=== PATIENT | male | born 1950 | race Caucasian/White ===

== ENCOUNTER 2019-10-31 08:54 | Outpatient (CLI) | payer MEDICARE, SELFPAY ==
--- NOTE | 2019-10-31 09:13 | IR_ITS ---
WS: [id number] THORACIC AND LUMBAR MYELOGRAMs HISTORY: S/P INSERTION OF SPINAL STIMULATOR, DISC DISORDER LUMBAR REGION COMPARISON: 01/06/2019 FLUOROSCOPY TIME: 1.1 minutes. Procedure, risks and complications were explained to the patient. Risks including bleeding, infection , headaches, allergic reaction and seizures. Consent has been obtained. With the patient in prone position the skin over the lumbar region is cleansed with ChloraPrep and an esthetized with lidocaine. 22-gauge spinal needle is inserted into the thecal sac at the appropriate level determined by fluoroscopy. Omnipaque 300; 12 ml is injected slowly under fluoroscopy with no co mplications. Needle bevel is perpendicular to the longitudinal fibers of the dura. Stylet is reinsert ed prior to removal of the needle. Patient tolerated the procedure well. Patient will proceed to CT f or further evaluation. Dorsal column stimulator electrode over the RIGHT lateral paravertebral region. Uncomplicated injecti on of contrast. The electrodes for the stimulator project over the mid thoracic region at T7-8. Multilevel osteophytosis and disc space narrowing throughout the mid to lower thoracic spine. There i s mild straightening and very slight RIGHT convex curvature. Very mild anterior wedging of T12 is sta ble. Posterior lumbar alignment is normal. With flexion and extension there is no instability. IR/IR myelogram spine thorac/lumb IMPRESSION: 1. Uncomplicated thoracic and lumbar myelograms. 2. No lumbar spine instability. 3. Stable mild anterior wedging of T12. 4. Dorsal column stimulator generator in the RIGHT paraspinal region with elec trodes posteriorly at the T7-8 level. 5. Mild RIGHT convex curvature mid thoracic spine with moderate mid to lower t horacic spondylosis.
--- NOTE | 2019-10-31 09:15 | CT_ITS ---
WS: [id number] CT MYELOGRAM LUMBAR SPINE HISTORY: S/P INSERTION OF SPINAL STIMULATOR, DISC DISORDER LUMBAR REG TECHNIQUE: Contiguous 2.5 mm axial imaging performed from T12 through the mid sacral level. Bone and soft tissue windows reviewed. Sagittal and coronal reformats are submitted and reviewed. DLP: 2080.[address] scans at [facility] use at least one of these dose optimization techniques: automat ed exposure control; mA and/or kV adjustment per patient size (includes targeted exams where dose is matched to clinical indication); or iterative reconstruction. COMPARISON: 01/06/2019 Good injection of the thecal sac with contrast. Posterior lumbar alignment is normal. Mild disc space narrowing and desiccation at L5-S1. No fractures or pedicle defects. Conus tapers normally ends at t he mid L1 level. L1-L2: L2-L3: Very mild annular disc bulging and facet arthritis. No stenosis. L3-L4: Mild annular disc bulging and facet arthritis. L4-L5: Mild annular disc bulging and facet arthritis. Mild ligamentum flavum arthritis. No significan t stenosis. L5-S1: Hypertrophic osteophyte formation and annular disc bulging. RIGHT foraminal osteophyte with mi ld contact on the RIGHT S1 and L5 nerve roots. Contact on the nerve roots is due to combination of di sc bulging and disc osteophyte complex. Smaller osteophyte in the LEFT foramen with mild contact upon the L5 nerve root. Similar to the prior study of 01/06/2019. Mild degenerative changes in the SI joints. No erosions. Mild atherosclerosis aorta. CT/CT lumbar spine w con [id number] IMPRESSION: 1. No severe stenosis. 2. Disc and osteophyte disease contacting the RIGHT L5 and S1 nerve roots and mild contact on the LEFT L5 nerve root. Similar to the prior study of 01/06/2019 .
--- NOTE | 2019-10-31 09:15 | CT_ITS ---
WS: [id number] CT THORACIC MYELOGRAM HISTORY: S/P INSERTION OF SPINAL STIMULATOR, DISC DISORDER LUMBAR REGION TECHNIQUE: Contiguous 2.5 mm axial images are reviewed to thoracic spine. Images are reformatted in s agittal and coronal planes. All CT scans at [facility] use at least one of these dose opt imization techniques: automated exposure control; mA and/or kV adjustment per patient size (includes targeted exams where dose is matched to clinical indication); or iterative reconstruction. DLP: 1114.19 mGycm COMPARISON: 01/06/2019 Mild straightening of the normal thoracic kyphosis. Very mild anterior wedging of T12 and T10 is janie lar to the prior study. No retropulsion of the vertebral bodies. There is a dorsal column stimulator noted posterior to the thecal sac at T7-8. Majority of the contrast injected for the myelogram is lay ering posteriorly in the thecal sac. Significant artifact through the upper thoracic spine secondary to the shoulders. No significant sten osis is appreciated. Shallow RIGHT paracentral disc protrusion protrusion at T1-2. T8-9: Central disc protrusion with CSF still surrounding the cord. No significant stenosis within the thoracic spine. CT/CT thoracic spine w con [id number] IMPRESSION: 1. No significant central or foraminal stenosis in the thoracic spine. 2. Dorsal column stimulator electrodes at the T7-8 level with no interval jordan [employer].
[2019-10-31] MEDS: iohexol 300 mg/mL 50 mL Btl INTRATHECA (10:42)
== END 2019-10-31 08:55 | disposition home or self-care (01) ==
LOC: RADWPI 09:02
PROVIDERS: Family Provider Family Medicine; PCP Family Medicine; Visit Provider Specialist
DX: Z98.890 Other specified postprocedural states (principal); M51.17 Intervertebral disc disorders with radiculopathy, lumbosacral region; M51.37 Other intervertebral disc degeneration, lumbosacral region; M47.814 Spondylosis without myelopathy or radiculopathy, thoracic region
CPT/HCPCS: 62305; 72120; 72129; 72132; Q9967

== ENCOUNTER → 2019-11-27 11:53 | Outpatient (BNVA) | payer MEDICARE, SELFPAY | PROVIDERS: Family Provider Family Medicine; PCP Family Medicine; Visit Provider Nurse Practitioner Family | DX: B42.9 Sporotrichosis, unspecified (principal) | CPT/HCPCS: 85025; 87070; 87102; 87206 ==

== ENCOUNTER 2020-04-23 15:44 | Outpatient (CLI) | payer MEDICARE, SELFPAY ==
--- NOTE | 2020-04-23 16:18 | MR_ITS ---
WS: [id number] MRI THORACIC SPINE noncontrast HISTORY: FAILURE OF SPINAL CORD STIMULATOR, INITIAL ENCOUNTER COMPARISON: 10/31/2019 TECHNIQUE: Multiplanar sequences are performed in sagittal and axial planes. Spinal cord stimulator has been removed since the prior study. There is a soft tissue defect in the p osterior soft tissues at T7-8. Mild straightening of the normal kyphosis. Mild anterior wedging of T1 2 by 20% from an old compression fracture. There is also mild anterior wedging of T10 with the superi or endplate Schmorl's node. No acute marrow edema. Signal is in the thoracic cord is normal. There is no atrophy or enlargement. No syrinx identified. Conus tapers normally ends towards the L1 level. T1-2: Mild facet arthritis on the RIGHT. No stenosis. T2-3: Mild bilateral facet joint arthritis. T3-4: Mild bilateral facet joint arthritis. T4-5: Normal. T5-6: Normal. T6-7: Normal. T7-8: Mild facet joint arthritis. No stenosis. T8-9: Shallow central disc protrusion and annular fissure. No contact on the cord. Mild bilateral fa cet joint arthritis. Mild narrowing of the LEFT foramen. T9-10: Mild annular disc bulging and facet arthritis. Mild bilateral foraminal narrowing. T10-11: Facet joint arthritis with narrowing of the foramen. Moderate bilateral foraminal stenosis. No disc protrusion. T11-12: Mild annular disc bulging and moderate facet joint arthritis. Moderate bilateral foraminal n arrowing. Paravertebral soft tissues are negative. MR/MR thoracic spin wo con* [id number] IMPRESSION: 1. No high-grade central or foraminal stenosis. 2. Moderate bilateral foraminal stenosis at T10-11 and T11-12. 3. Central disc protrusion and annular fissure at T8-9 without cord contact. 4. No syrinx or cord compression.
--- NOTE | 2020-04-23 16:19 | MR_ITS ---
WS: [id number] MRI LUMBAR SPINE NONCONTRAST HISTORY: FAILURE OF SPINAL CORD STIMULATOR, INITIAL ENCOUNTER COMPARISON: 10/15/[address] lumbar spine 10/31/2019 TECHNIQUE: Sagittal and axial multisequence imaging is submitted. Mild straightening of the normal lumbar lordosis. Again noted is a chronic T12 compression fracture b y approximately 20%. Benign hemangioma in the anterior L5 vertebral body. No acute fractures. Posterior lumbar alignment is normal. Mild disc desiccation throughout, moderate narrowing at L5-S1. Conus terminates normally at L1-2 disc level. L1-L2: Normal. L2-L3: Small amount of fluid in the facet joints and mild annular disc bulging. No stenosis. L3-L4: Mild annular disc bulging and a small amount of fluid in the facet joints. No significant sten osis or protrusion. L4-L5: Mild annular disc bulging. There is a central disc protrusion and annular fissure. No contact on the nerve roots. Small amount of fluid in the facet joints and ligamentum flavum hypertrophy. Ther e is very mild narrowing of the foramen. L5-S1: Mild annular disc bulging and osteophytic ridging. Disc osteophyte in the subarticular recess. There is effacement of fat adjacent to the S1 nerve root on the RIGHT with mild contact on the L5 ne rve root. Small osteophyte contacting the undersurface of the LEFT L5 nerve root. MR/MR lumbar spine wo con* [id number] IMPRESSION: 1. Mild degenerative disc disease throughout the lumbar spine, most significan t at L5-S1. 2. Mild bilateral subarticular recess narrowing at L5-S1. Disc osteophyte with mild contact on the RIGHT L5 and S1 nerve roots without displacement. Minimal contact on the LEFT L5 nerve root due to osteophyte formation. 3. Shallow central disc protrusion and annular fissure at L4-5. 4. Minimal foraminal narrowing at L4-5.
== END 2020-04-23 15:45 | disposition home or self-care (01) ==
LOC: RADSHAW 15:49
PROVIDERS: PCP Family Medicine; Visit Provider Surgery
DX: T85.192A Other mechanical complication of implanted electronic neurostimulator of spinal cord electrode (lead), initial encounter (principal); X58.XXXA Exposure to other specified factors, initial encounter; M51.36 Other intervertebral disc degeneration, lumbar region; M25.78 Osteophyte, vertebrae; M51.26 Other intervertebral disc displacement, lumbar region; Q05.7 Lumbar spina bifida without hydrocephalus; M48.04 Spinal stenosis, thoracic region; M51.24 Other intervertebral disc displacement, thoracic region
CPT/HCPCS: 72146; 72148

== ENCOUNTER → 2020-05-07 09:00 | Outpatient (BNVA) | payer MEDICARE, SELFPAY | PROVIDERS: PCP Family Medicine; Visit Provider Nurse Practitioner Family | DX: I10 Essential (primary) hypertension (principal); E03.9 Hypothyroidism, unspecified; E78.5 Hyperlipidemia, unspecified; E11.9 Type 2 diabetes mellitus without complications | CPT/HCPCS: 80053; 80061; 83036; 84439; 84443; 85025 ==

== ENCOUNTER → 2020-07-09 08:31 | Outpatient (BNVA) | payer MEDICARE, SELFPAY | PROVIDERS: PCP Family Medicine; Referring Provider Surgery; Visit Provider Anesthesiology Pain Medicine | DX: M54.9 Dorsalgia, unspecified (principal); M47.816 Spondylosis without myelopathy or radiculopathy, lumbar region; M51.16 Intervertebral disc disorders with radiculopathy, lumbar region; M47.814 Spondylosis without myelopathy or radiculopathy, thoracic region; M51.9 Unspecified thoracic, thoracolumbar and lumbosacral intervertebral disc disorder; M62.830 Muscle spasm of back | CPT/HCPCS: 99205 ==

== ENCOUNTER → 2020-07-17 09:18 | Outpatient (BNVA) | payer MEDICARE, SELFPAY | PROVIDERS: PCP Family Medicine; Visit Provider Anesthesiology Pain Medicine | DX: M54.9 Dorsalgia, unspecified (principal); M47.816 Spondylosis without myelopathy or radiculopathy, lumbar region; M47.814 Spondylosis without myelopathy or radiculopathy, thoracic region; M51.9 Unspecified thoracic, thoracolumbar and lumbosacral intervertebral disc disorder; M62.830 Muscle spasm of back | CPT/HCPCS: 99213; 99214 ==

== ENCOUNTER → 2020-08-12 14:11 | Outpatient (BNVA) | payer MEDICARE, SELFPAY | PROVIDERS: PCP Family Medicine; Visit Provider Anesthesiology Pain Medicine | DX: M47.816 Spondylosis without myelopathy or radiculopathy, lumbar region (principal); M54.9 Dorsalgia, unspecified | CPT/HCPCS: 64493; 64494; 64495; J3490 ==

== ENCOUNTER → 2020-09-05 09:07 | Outpatient (BNVA) | payer MEDICARE, SELFPAY | PROVIDERS: PCP Family Medicine; Visit Provider Anesthesiology Pain Medicine | DX: M51.17 Intervertebral disc disorders with radiculopathy, lumbosacral region (principal); M79.18 Myalgia, other site; M54.9 Dorsalgia, unspecified; M47.816 Spondylosis without myelopathy or radiculopathy, lumbar region; M47.814 Spondylosis without myelopathy or radiculopathy, thoracic region; M51.9 Unspecified thoracic, thoracolumbar and lumbosacral intervertebral disc disorder | CPT/HCPCS: 20553; 99214; J1030; J3490 ==

== ENCOUNTER → 2020-09-10 12:47 | Outpatient (BNVA) | payer MEDICARE, SELFPAY | PROVIDERS: PCP Family Medicine; Visit Provider Anesthesiology Pain Medicine | DX: M47.816 Spondylosis without myelopathy or radiculopathy, lumbar region (principal); M54.9 Dorsalgia, unspecified; Z79.891 Long term (current) use of opiate analgesic | CPT/HCPCS: 64493; 64494; 64495; J3490 ==

== ENCOUNTER → 2020-09-25 10:29 | Outpatient (BNVA) | payer MEDICARE, SELFPAY | PROVIDERS: PCP Family Medicine; Visit Provider Anesthesiology Pain Medicine | DX: G89.29 Other chronic pain (principal); M51.17 Intervertebral disc disorders with radiculopathy, lumbosacral region; M54.9 Dorsalgia, unspecified; M47.816 Spondylosis without myelopathy or radiculopathy, lumbar region; M47.814 Spondylosis without myelopathy or radiculopathy, thoracic region; M51.9 Unspecified thoracic, thoracolumbar and lumbosacral intervertebral disc disorder; M62.830 Muscle spasm of back | CPT/HCPCS: 99214 ==

== ENCOUNTER → 2020-10-02 14:11 | Outpatient (BNVA) | payer MEDICARE, SELFPAY | PROVIDERS: PCP Family Medicine; Visit Provider Anesthesiology Pain Medicine | DX: M47.816 Spondylosis without myelopathy or radiculopathy, lumbar region (principal); M54.9 Dorsalgia, unspecified; Z79.891 Long term (current) use of opiate analgesic | CPT/HCPCS: 64635; 64636; J1030; J3490 ==

== ENCOUNTER 2020-10-16 10:01 | Outpatient (RCR) | payer MEDICARE, SELFPAY | END 2020-11-08 23:59 | disposition home or self-care (01) | LOC: SPT 10:01 | PROVIDERS: PCP Family Medicine; Referring Provider Anesthesiology Pain Medicine; Visit Provider Anesthesiology Pain Medicine | DX: M47.816 Spondylosis without myelopathy or radiculopathy, lumbar region (principal); Z01.812 Encounter for preprocedural laboratory examination; G89.29 Other chronic pain; M54.5 Low back pain | CPT/HCPCS: 64635; 64636; 97110; 97162 ==

== ENCOUNTER → 2020-10-29 11:01 | Outpatient (BNVA) | payer MEDICARE, SELFPAY | PROVIDERS: PCP Family Medicine; Visit Provider Anesthesiology Pain Medicine | DX: M51.17 Intervertebral disc disorders with radiculopathy, lumbosacral region (principal); M79.18 Myalgia, other site; M54.9 Dorsalgia, unspecified; M47.816 Spondylosis without myelopathy or radiculopathy, lumbar region; M47.814 Spondylosis without myelopathy or radiculopathy, thoracic region; M51.9 Unspecified thoracic, thoracolumbar and lumbosacral intervertebral disc disorder; Z79.891 Long term (current) use of opiate analgesic | CPT/HCPCS: 20553; 99214; J1030; J3490 ==

== ENCOUNTER 2020-11-09 06:00 | Outpatient (RCR) | payer MEDICARE, SELFPAY | END 2020-12-09 23:59 | disposition home or self-care (01) | LOC: SPT 06:00 | PROVIDERS: PCP Family Medicine; Referring Provider Anesthesiology Pain Medicine; Visit Provider Anesthesiology Pain Medicine | DX: M47.816 Spondylosis without myelopathy or radiculopathy, lumbar region (principal); Z01.812 Encounter for preprocedural laboratory examination; G89.29 Other chronic pain; M54.5 Low back pain | CPT/HCPCS: 97110 ==

== ENCOUNTER → 2021-01-20 11:14 | Outpatient (BNVA) | payer MEDICARE, SELFPAY | PROVIDERS: PCP Family Medicine; Visit Provider Nurse Practitioner Family | DX: E03.9 Hypothyroidism, unspecified (principal); E11.9 Type 2 diabetes mellitus without complications; I10 Essential (primary) hypertension | CPT/HCPCS: 80053; 80061; 83036; 84439; 84443 ==

== ENCOUNTER → 2021-01-21 10:44 | Outpatient (BNVA) | payer MEDICARE, SELFPAY | PROVIDERS: PCP Family Medicine; Visit Provider Anesthesiology Pain Medicine | DX: G89.29 Other chronic pain (principal); M51.17 Intervertebral disc disorders with radiculopathy, lumbosacral region; M79.18 Myalgia, other site; M47.816 Spondylosis without myelopathy or radiculopathy, lumbar region; M47.814 Spondylosis without myelopathy or radiculopathy, thoracic region; M51.9 Unspecified thoracic, thoracolumbar and lumbosacral intervertebral disc disorder; Z79.891 Long term (current) use of opiate analgesic | CPT/HCPCS: 20553; 99214; J1030; J3490 ==

== ENCOUNTER → 2021-04-24 13:09 | Outpatient (BNVA) | payer MEDICARE, SELFPAY | PROVIDERS: PCP Family Medicine; Visit Provider Anesthesiology Pain Medicine | DX: M79.18 Myalgia, other site (principal); M51.16 Intervertebral disc disorders with radiculopathy, lumbar region; M47.816 Spondylosis without myelopathy or radiculopathy, lumbar region; M51.9 Unspecified thoracic, thoracolumbar and lumbosacral intervertebral disc disorder; M47.814 Spondylosis without myelopathy or radiculopathy, thoracic region; Z79.891 Long term (current) use of opiate analgesic | CPT/HCPCS: 20553; 99214; J1030; J3490 ==

== ENCOUNTER → 2021-10-29 09:48 | Outpatient (BNVA) | payer MEDICARE, SELFPAY | PROVIDERS: PCP Family Medicine; Visit Provider Nurse Practitioner Family | DX: M54.9 Dorsalgia, unspecified (principal); G89.29 Other chronic pain; M62.830 Muscle spasm of back; E11.9 Type 2 diabetes mellitus without complications; E03.9 Hypothyroidism, unspecified | CPT/HCPCS: 80053; 80061; 82306; 83036; 84443 ==

== ENCOUNTER 2021-11-18 06:00 | Outpatient (RCR) | payer MEDICARE, SELFPAY | END 2021-12-09 23:59 | disposition home or self-care (01) | LOC: SPT 06:00 | PROVIDERS: PCP Family Medicine; Referring Provider Nurse Practitioner Family; Visit Provider Nurse Practitioner Family | DX: M54.9 Dorsalgia, unspecified (principal); G89.29 Other chronic pain; M62.830 Muscle spasm of back | CPT/HCPCS: 97110; 97162 ==

== ENCOUNTER 2021-12-10 06:00 | Outpatient (RCR) | payer MEDICARE, SELFPAY | END 2022-01-08 23:59 | disposition home or self-care (01) | LOC: SPT 06:00 | PROVIDERS: PCP Family Medicine; Referring Provider Nurse Practitioner Family; Visit Provider Nurse Practitioner Family | DX: M54.50 Low back pain, unspecified (principal); G89.29 Other chronic pain | CPT/HCPCS: 97110 ==

== ENCOUNTER → 2021-12-17 10:26 | Outpatient (BNVA) | payer MEDICARE, SELFPAY | PROVIDERS: PCP Family Medicine; Visit Provider Family Medicine | DX: E03.9 Hypothyroidism, unspecified (principal); R35.1 Nocturia; G24.1 Genetic torsion dystonia | CPT/HCPCS: 81000; 84439; 84443 ==

== ENCOUNTER → 2022-04-13 12:16 | Outpatient (BNVA) | payer MEDICARE, SELFPAY | PROVIDERS: PCP Family Medicine; Referring Provider Family Medicine; Visit Provider Specialist | DX: G20 Parkinson's disease (principal) | CPT/HCPCS: 99204; 99205 ==

== ENCOUNTER → 2022-05-19 13:02 | Outpatient (BNVA) | payer MEDICARE, SELFPAY | PROVIDERS: PCP Family Medicine; Visit Provider Specialist | DX: G20 Parkinson's disease (principal) | CPT/HCPCS: 99214 ==

== ENCOUNTER 2022-06-02 14:43 | Outpatient (RCR) | payer MEDICARE, SELFPAY | END 2022-06-10 23:59 | disposition home or self-care (01) | LOC: SPT 14:43 | PROVIDERS: PCP Family Medicine; Visit Provider Specialist | DX: G20 Parkinson's disease (principal) | CPT/HCPCS: 97162 ==

== ENCOUNTER 2022-06-11 06:00 | Outpatient (RCR) | payer MEDICARE, SELFPAY | END 2022-07-11 23:59 | disposition home or self-care (01) | LOC: SPT 06:00 | PROVIDERS: PCP Family Medicine; Visit Provider Specialist | DX: G20 Parkinson's disease (principal) | CPT/HCPCS: 97110 ==

== ENCOUNTER 2022-07-12 06:00 | Outpatient (RCR) | payer MEDICARE, SELFPAY | END 2022-07-27 23:59 | disposition home or self-care (01) | LOC: SPT 06:00 | PROVIDERS: PCP Family Medicine; Visit Provider Specialist | DX: G20 Parkinson's disease (principal) | CPT/HCPCS: 97110 ==

== ENCOUNTER → 2022-08-25 13:12 | Outpatient (BNVA) | payer MEDICARE, SELFPAY | PROVIDERS: PCP Family Medicine; Visit Provider Specialist | DX: G20 Parkinson's disease (principal); M54.6 Pain in thoracic spine | CPT/HCPCS: 99214 ==

== ENCOUNTER → 2022-12-01 16:47 | Outpatient (BNVA) | payer MEDICARE, SELFPAY | PROVIDERS: PCP Family Medicine; Visit Provider Nurse Practitioner Family | DX: I10 Essential (primary) hypertension (principal) | CPT/HCPCS: 80053; 80061; 84443; 85025 ==

== ENCOUNTER 2022-12-04 11:11 | Emergency (ER) | payer MEDICARE, SELFPAY ==
[2022-12-04 11:27] VITALS: BP 176/78; PULSE 78; RESP 16; TEMP 36.8; O2SAT 98; BMI 28.2
--- NOTE | 2022-12-04 12:00 | CT_ITS ---
WS: [id number] CT ABDOMEN PELVIS TECHNIQUE: Noncontrast CT of the abdomen and pelvis with coronal and sagittal reformatted images. CLINICAL INFORMATION: flank pain COMPARISON: None. DLP: 753.[address] scans at [facility] use at least one of these dose optimization techniques: automated e xposure control; mA and/or kV adjustment per patient size (includes targeted exams where dose is matc hed to clinical indication); or iterative reconstruction. FINDINGS: Lung bases are well aerated. Splenic granulomas. Splenic artery calcification. Small esophageal hiata l hernia. Noncontrast liver is normal. Normal caliber abdominal aorta. Adrenal glands are normal. No obstructing renal or ureteral calculi. Enlarged prostate with evidence bladder outlet obstruction. Prostate measures 4.2 CM. Recommend corre lation PSA. Small fat-containing umbilical hernia. Dense vascular calcification. Diffuse mild pancolonic constipa tion. Tortuous sigmoid colon. Anterior wedging with compression of the superior endplate L1. This is new since 2020. Correlation fo r recent trauma and acute low back pain. Mild chronic anterior wedging at T12. CT/CT kidney stone [id number] IMPRESSION: 1. Mild diffuse pancolonic constipation. 2. No obstructing renal or ureteral calculi. No hydronephrosis in either kidne y. 3. Dense vascular calcification 4. Enlarged prostate with evidence of bladder outlet obstruction. Recommend co rrelation PSA. 5. Mild compression fracture superior endplate L1 new since the MRI in 2019.Co rrelation for low back pain. No significant retropulsion.
[2022-12-04 12:45] LABS: Basophils % 0.2 %; Eosinophils % 0.6 %; Hemoglobin 11.5 g/dL (11.7-16.6); Lymphocytes # 1.4 10^3/uL (0.8-4.8); Lymphocytes % 29.2 %; Mean Corpuscular HGB Conc 31.9 g/dL (30.0-36.0); Mean Corpuscular Hemoglobin 32.7 pg (28.0-34.0); Mean Corpuscular Volume 102.3 fl (80-94); Monocytes # 0.4 10^3/uL (0.2-0.9); Monocytes % 7.2 %; Neutrophils # 3.02 10^3/uL (1.8-7.7); Neutrophils % 62.6 %; Nucleated Red Blood Cells % 0 %; Platelet Count 185 10^3/cmm (130-400); Red Blood Count 3.52 10^6/uL (4.1-5.3); Red Cell Distribution Width 14.6 % (12.1-15.1); White Blood Count 4.8 10^3/uL (4.0-10.0)
[2022-12-04 13:05] LABS: Alanine Aminotransferase 24 U/L (0-41); Albumin Level 4.3 g/dL (3.5-5.2); Alkaline Phosphatase 91 U/L (40-130); Anion Gap 16.5 (5-19); Aspartate Amino Transferase 19 U/L (0-40); Blood Urea Nitrogen 15 mg/dL (8-23); Calcium 9.3 mg/dL (8.5-10.5); Carbon Dioxide 26 mmol/L (22-29); Chloride 100 mmol/L (98-107); Globulin 3.8 g/dL (1.3-4.6); Glucose 73 mg/dL (65-115); Osmolality Calculated 285 mOsm/kg (285-295); Potassium 4.5 mmol/L (3.5-5.1); Sodium 138 mmol/L (136-145); Total Bilirubin 0.4 mg/dL (0.15-1.2); Total Protein 8.1 g/dL (6.6-8.7)
[2022-12-04 13:30] VITALS: BP 162/75; PULSE 75; RESP 17; O2SAT 98
[2022-12-04 14:30] VITALS: BP 151/74; PULSE 68; RESP 16; TEMP 36.9; O2SAT 98
--- NOTE | 2022-12-04 15:39 | W.ED.ABDPA2 ---
HPI - Abdominal Pain General: Chief Complaint: Abdominal Pain Stated Complaint: possible kidney stone Time Seen by Provider: 12/04/22 15:27 History of Present Illness: Patient presents to the ER with complaints of left-sided flank pain x2 days. Patient said this is similar to when he had a kidney stone in the past. Patient says sitting still helps the pain. Patient does recall a fall approximately 3 days ago about the time the same pain started. MD elicited complaint: flank pain Pertinent past history: kidney stones Onset (ago): day(s) (About 2 days ago) Pain Consistency: colicky Location: L flank Severity: moderate Quality: stabbing Exacerbating factors: movement Relieving factors: rest Associated Symptoms: Denies chills, dysuria, fever(s), nausea and vomiting Review of Systems General: Reports: 10 or more systems reviewed and unremarkable except in HPI and below Const: Denies: fever(s) or chills Eyes: Denies: change in vision or photophobia ENMT: Denies: throat pain or enlarged tonsils Card: Denies: chest pain, palpitations or irregular heart rhythm Resp: Denies: dyspnea, productive cough or non-productive cough GI: Denies: abdominal pain, nausea or vomiting : Reports: flank pain; Denies: difficulty urinating or dysuria PFSH ED PFSH: Medical History BPH (benign prostatic hyperplasia) Diabetes mellitus Gout Hypertension Hypothyroid Intervertebral disc disorders with radiculopathy, lumbar region Surgical History H/O lumbar discectomy (~2017) H/O shoulder surgery S/P insertion of spinal cord stimulator (~08/26/17) Device removed either 2018 or 2019 Social History Smoking and tobacco status: never smoked Alcohol intake: never Substance/Drug Use: never Lives independently: Yes Household members: spouse Marital status: Current occupational status: employed Physical Exam Const: COMMON NORMALS: no acute distress, average body habitus, patient oriented x3, no limitations, healthy appearing, alert and well nourished HENMT: COMMON NORMALS: normocephalic, atraumatic, hearing grossly normal bilaterally, Normal external nose present and moist oral mucous membranes HEAD & SCALP: normocephalic and atraumatic NOSE: Normal external nose present Eye: COMMON NORMALS: Equal, round and reactive pupils present, EOMs intact bilaterally, conjunctivae normal and no scleral icterus CONJUNCTIVA: Yes conjunctivae normal PUPIL: Yes Equal, round and reactive pupils present Neck/C-Spine: COMMON NORMALS: full ROM, no lymphadenopathy, supple, no meningeal signs, no JVD and Thyroid normal THYROID: Thyroid normal Chest: COMMONS NORMALS: normal inspection of the chest and normal palpation of entire chest wall Resp: COMMON NORMALS: normal respiratory effort, No retractions, No use of accessory muscles and clear to auscultation bilaterally AUSCULTATION: clear to auscultation bilaterally Cardio: COMMON NORMALS: no JVD, regular rate, regular rhythm, S1 normal heart sound present, S2 normal heart sound present, No gallops present (Cardio), No clicks present (Cardio), No murmurs present (Cardio) and No rub (Cardio) RATE: regular rate RHYTHM: regular rhythm HEART SOUNDS: S1 normal heart sound present and S2 normal heart sound present GI: COMMON NORMALS: Normal to inspection, nondistended, normoactive bowel sounds present, Soft to palpation, non-tender, No hepatosplenomegaly present and no masses PALPATION: Yes Soft to palpation and Yes No hepatosplenomegaly present : BLADDER/KIDNEY EXAM: Yes CVA tenderness on the right Back/Pelvis: GENERAL BACK: Yes CVA tenderness Neuro: COMMON NORMALS: patient oriented x3 SENSORIUM/ORIENTATION: Yes alert MENINGEAL SIGNS: Yes no meningeal signs Course Vital Signs: Vital signs: Vital Signs Temperature 98.4 F 12/04/22 14:30 Pulse Rate 68 12/04/22 14:30 Respiratory Rate 16 12/04/22 14:30 Blood Pressure 151/74 12/04/22 14:30 Pulse Oximetry 98 12/04/22 14:30 Oxygen Delivery Me thod Room Air 12/04/22 11:27 MDM - Abdominal Pain Medical Decision Making Patient presents to the ER with 2-day history of left-sided flank pain. Patient does have kidney stones in the past. Stone work-up was obtained which included CBC CMP and abdominal CT. Patient was unable to give us urine at this time. CT showed no obstructing renal calculi however did show a new mild L1, compression fracture. Patient does remember falling about the same time this pain started. Patient will be given pain medicine and be referred back to his primary care doctor for possible referral to a spinal surgeon to see if he is a candidate for kyphoplasty. Medical Records I reviewed the patient's medical records. Lab Data I reviewed the patient's lab results. 12/04/22 12:14 12/04/22 12:14 Labs/Radiology: Radiology Impressions Abdomen/Pelvis CT 12/04/22 12:00 IMPRESSION: 1. Mild diffuse pancolonic constipation. 2. No obstructing renal or ureteral calculi. No hydronephrosis in either kidney. 3. Dense vascular calcification 4. Enlarged prostate with evidence of bladder outlet obstruction. Recommend correlation PSA. 5. Mild compression fracture superior endplate L1 new since the MRI in 2019.Correlation for low back pain. No significant retropulsion. Laboratory Results WBC 4.8 10^3/uL (4.0-10.0) 12/04/22 12:14 RBC 3.52 10^6/uL (4.1-5.3) L 12/04/22 12:14 Hgb 11.5 g/dL (11.7-16.6) L 12/04/22 12:14 Hct 36.0 % (42.0-52.0) L 12/04/22 12:14 MCV 102.3 fl (80-94) H 12/04/22 12:14 MCH 32.7 pg (28.0-34.0) 12/04/22 12:14 MCHC 31.9 g/dL (30.0-36.0) 12/04/22 12:14 RDW 14.6 % (12.1-15.1) 12/04/22 12:14 Plt Count 185 10^3/cmm (130-400) 12/04/22 12:14 MPV 10.0 fL (7.4-10.4) 12/04/22 12:14 Neut % (Auto) 62.6 % 12/04/22 12:14 Lymph % (Auto) 29.2 % 12/04/22 12:14 [place] % (Auto) 7.2 % 12/04/22 12:14 Eos % (Auto) 0.6 % 12/04/22 12:14 Baso % (Auto) 0.2 % 12/04/22 12:14 Neut # (Auto) 3.02 10^3/uL (1.8-7.7) 12/04/22 12:14 Lymph # (Auto) 1.4 10^3/uL (0.8-4.8) 12/04/22 12:14 [place] # (Auto) 0.4 10^3/uL (0.2-0.9) 12/04/22 12:14 Eos # (Auto) 0.0 10^3/uL (0.0-0.8) 12/04/22 12:14 Baso # (Auto) 0.0 10^3/uL (0.0-0.1) 12/04/22 12:14 Nucleated RBC % (auto) 0 % 12/04/22 12:14 Nucleated RBCs # 0.0 /100WBC 12/04/22 12:14 Sodium 138 mmol/L (136-145) 12/04/22 12:14 Potassium 4.5 mmol/L (3.5-5.1) 12/04/22 12:14 Chloride 100 mmol/L (98-107) 12/04/22 12:14 Carbon Dioxide 26 mmol/L (22-29) 12/04/22 12:14 Anion Gap 16.5 (5-19) 12/04/22 12:14 BUN 15 mg/dL (8-23) 12/04/22 12:14 Creatinine 0.9 mg/dL (0.7-1.2) 12/04/22 12:14 GFR Calculation Not Reportable 12/04/22 12:14 Glucose 73 mg/dL (65-115) 12/04/22 12:14 Calculated Osmolality 285 mOsm/kg (285-295) 12/04/22 12:14 Calcium 9.3 mg/dL (8.5-10.5) 12/04/22 12:14 Total Bilirubin 0.4 mg/dL (0.15-1.2) 12/04/22 12:14 AST 19 U/L (0-40) 12/04/22 12:14 ALT 24 U/L (0-41) 12/04/22 12:14 Alkaline Phosphatase 91 U/L (40-130) 12/04/22 12:14 Total Protein 8.1 g/dL (6.6-8.7) 12/04/22 12:14 Albumin 4.3 g/dL (3.5-5.2) 12/04/22 12:14 Globulin 3.8 g/dL (1.3-4.6) 12/04/22 12:14 Discharge Plan Discharge Patient Disposition: Home Clinical Impression: Closed compression fracture of L1 vertebra Condition: Stable Prescriptions: New hydrocodone-acetaminophen 5-325 mg tablet 1 tab PO Q6H PRN (Reason: pain) Qty: 14 0RF No Action MOBILITY SCOOTER 1 unit as directed DAILY Qty: 1 0RF trazodone 50 mg tablet 50 mg PO .COMPLEX Qty: 30 3RF Rx Instructions: 50 mg orally; 1-2 tablets at night carbidopa-levodopa 25-100 mg tablet 1 tab PO TID 90 Days Qty: 270 0RF Rx Instructions: 2 tabs at 8am and 11am, 1 tablet at 3pm and 7pm allopurinol 300 mg tablet See Rx Instructions .ROUTE .COMPLEX Qty: 90 3RF Dose Instruction: Take 1 tablet by mouth once daily Rx Instructions: Take 1 tablet by mouth once daily glipizide 10 mg tablet 10 mg PO BID Qty: 180 3RF levothyroxine 112 mcg tablet See Rx Instructions .ROUTE .COMPLEX Qty: 90 3RF Dose Instruction: Take 1 tablet by mouth once daily Rx Instructions: Take 1 tablet by mouth once daily metformin 1,000 mg tablet See Rx Instructions .ROUTE .COMPLEX Qty: 180 3RF Dose Instruction: Take 1 tablet by mouth twice daily Rx Instructions: Take 1 tablet by mouth twice daily pioglitazone 45 mg tablet See Rx Instructions .ROUTE .COMPLEX Qty: 90 3RF Dose Instruction: Take 1 tablet by mouth once daily Rx Instructions: Take 1 tablet by mouth once daily simvastatin 20 mg tablet See Rx Instructions .ROUTE .COMPLEX Qty: 90 3RF Hold Instructions: while on itraconazole Dose Instruction: Take 1 tablet by mouth once daily Rx Instructions: Take 1 tablet by mouth once daily tamsulosin 0.4 mg capsule 0.8 mg PO DAILY Qty: 180 3RF (DME) walker Misc See Rx Instructions .ROUTE .MEDSUPPLY Qty: 1 0RF Rx Instructions: please dispense one upright walker glipizide 10 mg tablet 10 mg PO BID Qty: 180 3RF allopurinol 300 mg tablet See Rx Instructions .ROUTE .COMPLEX Qty: 90 3RF Dose Instruction: Take 1 tablet by mouth once daily Rx Instructions: Take 1 tablet by mouth once daily metformin 1,000 mg tablet See Rx Instructions .ROUTE .COMPLEX Qty: 180 0RF Dose Instruction: Take 1 tablet by mouth twice daily Rx Instructions: Take 1 tablet by mouth twice daily tramadol 50 mg tablet 50 mg PO DAILY 30 Days Qty: 60 3RF Rx Instructions: Take 1-2 tabs at bedtime to help with sleep. levothyroxine 112 mcg tablet See Rx Instructions .ROUTE .COMPLEX Qty: 30 0RF Dose Instruction: Take 1 tablet by mouth once daily Rx Instructions: Take 1 tablet by mouth once daily simvastatin 20 mg tablet See Rx Instructions .ROUTE .COMPLEX Qty: 30 0RF Hold Instructions: while on itraconazole Dose Instruction: Take 1 tablet by mouth once daily Rx Instructions: Take 1 tablet by mouth once daily pioglitazone 45 mg tablet See Rx Instructions .ROUTE .COMPLEX Qty: 30 0RF Dose Instruction: Take 1 tablet by mouth once daily Rx Instructions: Take 1 tablet by mouth once daily Discharge Orders: Discharge ED (Routine); Ordered 12/04/22 Ordered By: Selwyn Ni Referrals: Cyril Guido DO [Primary Care Provider] - 1 week Patient Instructions: Fractures - Compression, Vertebroplasty (DC) Activity Restrictions/Additional Instructions: Please follow-up with your family practice doc within the next 1 to 2 weeks as you may benefit from a referral to a spinal surgeon to see if you qualify for kyphoplasty. Coding Level of Care Code ED Engineering Secretary for Kulwinder Warren
[2022-12-04 15:58] VITALS: BP 143/79; PULSE 71; RESP 16; O2SAT 96
[2022-12-04] MEDS: HYDROcodone-acetaminophen 5-325 mg Tablet 1 TAB PO (16:05)
[2022-12-04 16:27] VITALS: BP 172/95; PULSE 78; RESP 16; O2SAT 95
== END 2022-12-04 16:28 | disposition home or self-care (01) ==
PROVIDERS: Physician Assistant; Emergency Provider Emergency Medicine; PCP Family Medicine
DX: S32.010A Wedge compression fracture of first lumbar vertebra, initial encounter for closed fracture (principal); Z79.84 Long term (current) use of oral hypoglycemic drugs; E11.9 Type 2 diabetes mellitus without complications; I10 Essential (primary) hypertension; W19.XXXA Unspecified fall, initial encounter
CPT/HCPCS: 36415; 74176; 80053; 85025; 99284

== ENCOUNTER → 2022-12-08 14:20 | Outpatient (BNVA) | payer MEDICARE, SELFPAY | PROVIDERS: PCP Family Medicine; Visit Provider Nurse Practitioner Family | DX: S32.010A Wedge compression fracture of first lumbar vertebra, initial encounter for closed fracture (principal); X58.XXXA Exposure to other specified factors, initial encounter; Z12.5 Encounter for screening for malignant neoplasm of prostate | CPT/HCPCS: G0103 ==

== ENCOUNTER → 2022-12-10 10:16 | Outpatient (BNVA) | payer MEDICARE, SELFPAY | PROVIDERS: PCP Family Medicine; Visit Provider Orthopaedic Surgery | DX: S32.010A Wedge compression fracture of first lumbar vertebra, initial encounter for closed fracture (principal); W08.XXXA Fall from other furniture, initial encounter | CPT/HCPCS: 72100; 99204 ==

== ENCOUNTER 2022-12-18 07:16 | Day surgery (SDC) | payer MEDICARE, SELFPAY ==
--- NOTE | 2022-12-14 08:34 | ECG_ITS ---
[facility] Test Date: 2022-12-14 Pat Name: Ralf Herrera Department: Room: Gender: Male Director Global Sales: : 1950 Requested By: Arnulfo Ruiz Order Number: [id number] Isaiah MD: Stanton Alvarez M.D. Measurements Intervals [place] Rate: 65 P: 19 AR: 200 QRS: -24 QRSD: 115 T: 7 QT: 381 QTc: 396 Interpretive Statements SINUS RHYTHM INCOMPLETE RIGHT BUNDLE BRANCH BLOCK [90+ ms QRS DURATION, TERMINAL R IN V1/V2, 40+ ms S IN I/aVL/V4/V5/V6] POSSIBLE ANTERIOR MYOCARDIAL INFARCTION , OF INDETERMINATE AGE [30 ms Q WAVE IN V3/V4, OR R < 0.2 mV IN V4] Compared to ECG 08/25/2017 10:01:54 Incomplete right bundle-branch block now present Myocardial infarct finding now present T-wave abnormality no longer present Electronically Signed On 12-14-2022 16:46:08 CDT by Stanton Alvarez M.D. [email or web address]
--- NOTE | 2022-12-14 09:02 | P.ANESASSM_ITS ---
Pre-Anesthetic Assessment Height/Weight: Height 1.75 m Operation Date: 12/18/22 12:00 Proposed Procedures p Kyphoplasty L-1:86588,S32.010A(Not Applicable) - Robin Brown DO Familial anesthetic complications: None Social No alcohol and No tobacco Exam alert, oriented x 3, clear to auscultation bilaterally and regular rate & rhythm Airway Mallampati: Class III Dentition: partials Pulmonary None reported CV/HEM None reported None reported Hepatic None reported GI None reported Metabolic Diabetes Mellitus, Hyperlipidemia and Thyroid Disease [facility] Osteoarthritis/DJD Neuropsych None reported Anesthetic Plan ASA status: 3 Anesthesia: General Risk of > 500 ml blood loss (7ml/kg in children): No Medications/Allergies Home Medications Medication Instructions Recorded Confirmed Last Taken Type walker #1 ea 06/10/20 12/14/22 Unknown Rx MOBILITY SCOOTER 1 unit as directed DAILY DECREASED 04/28/21 12/14/22 Unknown Rx MOBILITY, FALL RISK #1 unit carbidopa 25 mg-levodopa 100 mg 1 tab PO TID 90 days #270 tabs 08/25/22 12/14/22 12/14/22 Rx tablet trazodone 50 mg tablet 50 mg PO .COMPLEX #30 tabs 08/25/22 12/14/22 12/13/22 Rx tramadol 50 mg tablet 50 mg PO DAILY pain 1 month #60 09/23/22 12/14/22 Unknown Rx tabs allopurinol 300 mg tablet See Rx Instructions .Route 12/02/22 12/14/22 12/14/22 Rx .COMPLEX #90 tabs glipizide 10 mg tablet 10 mg PO BID #180 tabs 12/02/22 12/14/22 12/14/22 Rx levothyroxine 112 mcg tablet See Rx Instructions .Route 12/02/22 12/14/22 12/14/22 Rx .COMPLEX #90 tabs metformin 1,000 mg tablet See Rx Instructions .Route 12/02/22 12/14/22 12/14/22 Rx .COMPLEX #180 tabs pioglitazone 45 mg tablet See Rx Instructions .Route 12/02/22 12/14/22 12/14/22 Rx .COMPLEX #90 tabs simvastatin 20 mg tablet See Rx Instructions .Route 12/02/22 12/14/22 12/14/22 Rx .COMPLEX #90 tabs tamsulosin 0.4 mg capsule 0.8 mg PO DAILY #180 caps 12/02/22 12/14/22 12/14/22 Rx hydrocodone 5 mg-acetaminophen 325 1 tab PO Q6H PRN pain 5 days #20 12/08/22 12/14/22 12/14/22 Rx mg tablet tabs Allergies Allergy/AdvReac Type Severity Reaction Status Date / Time amoxicillin Allergy Unknown ALGY-Rash Verified 12/10/22 10:25 celecoxib [From Celebrex] Allergy Unknown unknown Verified 12/10/22 10:25 Penicillins Allergy Unknown unknown Verified 12/10/22 10:25 [facility] Anesthesia Medical History BPH (benign prostatic hyperplasia) Diabetes mellitus Gout Hypertension Hypothyroid Intervertebral disc disorders with radiculopathy, lumbar region Surgical History H/O lumbar discectomy (~2017) H/O shoulder surgery S/P insertion of spinal cord stimulator (~08/26/17) Device removed either 2018 or 2018 Social History Smoking and tobacco status: never smoked Alcohol intake: never Substance/Drug Use: never Lives independently: Yes Household members: spouse Marital status: Current occupational status: employed Data Anesthesia Cardiac Studies: 2 No Data to Display
[2022-12-14 10:38] LABS: Add Urine Microscopic? NO; Charge for UA Resulting for Rev
[2022-12-14 10:48] LABS: Bilirubin Urine Neg (Negative); Blood Urine Neg (Negative); Glucose Urine UA Norm (Normal); Ketones Urine Negative (Negative); Leukocyte Esterase Urine Negative (Negative); Nitrate Urine Negative (Negative); Protein Urine Neg (Negative); Urine Appearance Clear (CLEAR); Urine Color Yellow (Yellow); Urobilinogen Urine Norm (Negative); pH Urine 5 (5-7)
[2022-12-18] VITALS (10 sets, daily range): BP systolic 129–176; BP diastolic 61–75; PULSE 62–69; RESP 11–18; TEMP 36.1–36.6; O2SAT 94–100
--- NOTE | 2022-12-18 07:28 | W.PM.OPSUD ---
Surgery/Procedure H&P Update DATE OF PROCEDURE: December 18, 2022 DATE H&P PERFORMED: 12/10/22 PLANNED PROCEDURE: Operation Date: 12/18/22 09:00 Proposed Procedures p Kyphoplasty L-1:57523,S32.010A(Not Applicable) - Robin Brown DO
--- NOTE | 2022-12-18 07:29 | W.PM.OPSUD ---
Surgery/Procedure H&P Update DATE OF PROCEDURE: December 18, 2022 DATE H&P PERFORMED: 12/10/22 H&P UPDATE INFORMATION: I have reviewed H&P completed within last 30 days, I have examined patient prior to procedure and No changes to prior documentation PLANNED PROCEDURE: Operation Date: 12/18/22 09:00 Proposed Procedures p Kyphoplasty L-1:83455,S32.010A(Not Applicable) - Robin Brown DO
--- NOTE | 2022-12-18 07:32 | SC_ITS ---
WS: [id number] EXAMINATION: C-arm FL for Kyphoplasty ORDER DATE: 12/18/2022 7:32 AM REASON FOR EXAM: L1 Kyphoplasty COMPARISON: None available. FLUOROSCOPY TIME: 8 seconds # OF SPOT FILMS: 3 FINDINGS: Injection of radiopaque methylmethacrylate into the L1 vertebral body from left-sided approach. Methylmethacrylate fills the anterior L1 vertebral body with some posterior and anterior extra verteb ral extension. SC/C-arm FL for Kyphoplasty IMPRESSION: L1 vertebroplasty as above.
[2022-12-18] MEDS: sodium chloride 0.9% 1,000 ML 30 ML IV (07:52)
[2022-12-18 07:58] LABS: Glucose Point of Care 115 mg/dL (70-110)
[2022-12-18] MEDS: clindamycin 600 MG/50 ML PREMIX 100 MG IV (07:58)
[2022-12-18] MEDS: clindamycin 300 MG/50 ML PREMIX 100 MG IV (07:58)
[2022-12-18] MEDS: iohexol 300 mg/mL 50 mL Btl (OR ONLY) XX (08:30)
[2022-12-18] MEDS: lidocaine-epi 1% 20 mL INJ INJECTION (08:30)
--- NOTE | 2022-12-18 09:03 | PM.OP ---
Operative Report Date of procedure: December 18, 2022 Pre-op diagnosis: Preop Diagnosis L1 traumatic osteoporotic wedge compression fracture Post-op diagnosis: same Procedure done: 1. L1 Kyphoplasty Surgeon: Robin Brown Estimated blood loss (mL): 5 Procedure: 1. L1 Kyphoplasty Please what ever pseudofolliculitis is placed in the prone position. All his impingement well-padded. Skin incision made over the L1 level. This confirmed by AP lateral fluoroscopy. The awl was inserted first. Followed by the drill. Followed by the balloon. Balloon was inflated and deflated balloon was removed. Then the cement was placed. Once the cement was placed. AP lateral fluoroscopy washers. The cement did leak back a little bit into the canal this point the cement was stopped. AP lateral fluoroscopy ensure the cement and fracture in good position. Wounds irrigated and closed with nylon suture. Sterile dressings applied patient transferred to PACU in stable addition.
[2022-12-18] MEDS: HYDROcodone-acetaminophen 5-325 mg Tablet 1 TAB PO (09:41)
--- NOTE | 2022-12-18 09:45 | SUR.PHASEII ---
09:30 ROM AND SENSATION IN ALL 4 EXTREMITIES.
--- NOTE | 2022-12-18 14:02 | ANE.PACU2 ---
Inpatient post-anesthesia follow up: Airway intact: Yes Vital signs: Temperature 97.8 F Pulse Rate 67 Respiratory Rate 16 Blood Pressure 163/74 Pulse Oximetry 95 Oxygen Delivery Me thod Room Air Oxygen Flow Rate Fraction of Inspir ed Oxygen Hydration adequate: Yes Nausea and vomiting: No Pain level: 1 Mental status: Baseline
== END 2022-12-18 10:35 | disposition home or self-care (01) ==
PROVIDERS: PCP Family Medicine; Visit Provider Orthopaedic Surgery
PROC: (CPT 22514; principal; 2022-12-18 08:50)
DX: S32.010A Wedge compression fracture of first lumbar vertebra, initial encounter for closed fracture (principal); X58.XXXA Exposure to other specified factors, initial encounter; I45.10 Unspecified right bundle-branch block; E11.9 Type 2 diabetes mellitus without complications; E78.5 Hyperlipidemia, unspecified; E03.9 Hypothyroidism, unspecified; Z79.84 Long term (current) use of oral hypoglycemic drugs; Z79.891 Long term (current) use of opiate analgesic; I10 Essential (primary) hypertension
CPT/HCPCS: 22514; 36416; 76000; 81003; 82962; 93005; J2704; J3010; J3490; J7030

== ENCOUNTER → 2022-12-30 13:50 | Outpatient (BNVA) | payer MEDICARE, SELFPAY | PROVIDERS: PCP Family Medicine; Visit Provider Specialist | DX: G20 Parkinson's disease (principal); G24.8 Other dystonia; F44.4 Conversion disorder with motor symptom or deficit | CPT/HCPCS: 99214 ==

== ENCOUNTER → 2022-12-31 13:29 | Outpatient (BNVA) | payer MEDICARE, SELFPAY | PROVIDERS: PCP Family Medicine; Visit Provider Orthopaedic Surgery | DX: Z48.89 Encounter for other specified surgical aftercare (principal) | CPT/HCPCS: 99024 ==

== ENCOUNTER → 2023-01-21 12:38 | Outpatient (BNVA) | payer MEDICARE, SELFPAY | PROVIDERS: PCP Family Medicine; Visit Provider Orthopaedic Surgery | DX: Z48.89 Encounter for other specified surgical aftercare (principal) | CPT/HCPCS: 99214 ==

== ENCOUNTER 2023-02-17 10:20 | Outpatient (CLI) | payer MEDICARE, SELFPAY ==
--- NOTE | 2023-02-17 11:00 | MR_ITS ---
WS: [id number] MRI THORACIC SPINE noncontrast HISTORY: back pain, hx of compression fractures COMPARISON: None available. TECHNIQUE: Multiplanar sequences are performed in sagittal and axial planes. Mild increase in kyphosis at the thoracolumbar junction. Schmorl's node along the superior endplate o f T10. T12 compression fracture by 20% is reidentified. New L1 compression fracture since 04/23/2020 has undergone vertebroplasty. No acute fractures or marrow edema. Thoracic cord is normal size. No sy rinx. T1-2: Mild facet arthritis. No high-grade stenosis. T2-3: Minimal facet arthritis. No high-grade stenosis. T3-4: Mild facet arthritis. No stenosis. T4-5: Normal. T5-6: Normal. T6-7: Normal. T7-8: Mild bilateral facet joint arthritis. T8-9: Mild bilateral facet joint arthritis. Mild left foraminal stenosis. Shallow central disc protru lexus. T9-10: Mild foraminal narrowing T10-11: Mild facet arthritis and moderate foraminal narrowing. T11-12: Moderate bilateral foraminal narrowing. Similar to the prior study. Paravertebral soft tissues are normal. IMPRESSION: 1. No acute thoracic spine fractures. 2. Stable T12 compression fracture by 20%. 3. L1 compression fracture has undergone prior vertebroplasty. This lumbar spine fracture is [facility] e 04/23/2020. 4. Multilevel facet arthritis with foraminal narrowing. Most significant foraminal narrowing is moder ate at T10-11 and T11-12. No high-grade central stenosis.
--- NOTE | 2023-02-17 11:45 | MR_ITS ---
WS: [id number] MRI LUMBAR SPINE NONCONTRAST HISTORY: low back pain with radiculopathy COMPARISON: 04/23/2020 TECHNIQUE: Sagittal and axial multisequence imaging is submitted. Slight increase in the lumbar lordosis. New L1 compression fracture since 04/23/2020. Compression fra cture by 30% with vertebroplasty changes. Very minimal posterior bowing of the L1 vertebral body. Remaining vertebral body heights are well-maintained. Moderate disc space narrowing at L5-S1. L5 patric ngioma. Conus terminates normally at L1. Very mild encroachment upon the ventral thecal sac of the L1 superior endplate but no contact on the nerve roots. L1-L2: Mild facet arthritis. L2-L3: Mild annular disc bulging with mild ligamentum flavum and facet arthritis. Small amount of flu id in the facet joints. L3-L4: Slight retrolisthesis of L3 with mild annular disc bulging and mild ligamentum flavum and face t arthritis. Mild encroachment without displacement upon the traversing L4 nerve roots. L4-L5: Diffuse annular disc bulging with a central disc protrusion and annular fissure. Additional sh allow disc protrusion in the right foramen. Mild foraminal narrowing. Mild subarticular recess encroa chment and mild central stenosis. L5-S1: Mild osteophytic ridging. There is mild bilateral foraminal narrowing predominantly due to the osteophytes and facet disease. No central disc protrusion. Mild osteophyte encroachment upon the rig ht S1 nerve root. Paravertebral soft tissues are negative. IMPRESSION: 1. L1 30% compression fracture is new since 2019. Fractures status post vertebroplasty. 2. L4-5: Shallow central and right foraminal disc protrusions. Right foraminal disc protrusion appear s new since the prior study. Mild subarticular recess and foraminal stenosis at L4-5. 3. Mild bilateral foraminal and subarticular recess narrowing secondary to osteophytes. Mild encroach ment by osteophyte upon the right S1 nerve root.
== END 2023-02-17 10:21 | disposition home or self-care (01) ==
PROVIDERS: PCP Family Medicine; Visit Provider Orthopaedic Surgery
DX: S32.010A Wedge compression fracture of first lumbar vertebra, initial encounter for closed fracture (principal); X58.XXXA Exposure to other specified factors, initial encounter; M47.816 Spondylosis without myelopathy or radiculopathy, lumbar region; M51.16 Intervertebral disc disorders with radiculopathy, lumbar region; M51.9 Unspecified thoracic, thoracolumbar and lumbosacral intervertebral disc disorder; M47.814 Spondylosis without myelopathy or radiculopathy, thoracic region; M48.061 Spinal stenosis, lumbar region without neurogenic claudication; M25.78 Osteophyte, vertebrae; M48.04 Spinal stenosis, thoracic region
CPT/HCPCS: 72146; 72148

== ENCOUNTER → 2023-02-18 14:44 | Outpatient (BNVA) | payer MEDICARE, SELFPAY | PROVIDERS: PCP Family Medicine; Visit Provider Orthopaedic Surgery | DX: M48.56XA Collapsed vertebra, not elsewhere classified, lumbar region, initial encounter for fracture | CPT/HCPCS: 99214 ==

== ENCOUNTER → 2023-04-21 08:46 | Outpatient (BNVA) | payer MEDICARE, SELFPAY | PROVIDERS: PCP Family Medicine; Visit Provider Anesthesiology Pain Medicine | DX: M47.816 Spondylosis without myelopathy or radiculopathy, lumbar region; M47.814 Spondylosis without myelopathy or radiculopathy, thoracic region; M51.9 Unspecified thoracic, thoracolumbar and lumbosacral intervertebral disc disorder; M62.830 Muscle spasm of back | CPT/HCPCS: 99214 ==

== ENCOUNTER → 2023-04-27 10:42 | Outpatient (BNVA) | payer MEDICARE, SELFPAY | PROVIDERS: PCP Family Medicine; Visit Provider Anesthesiology Pain Medicine | DX: M79.18 Myalgia, other site (principal); M54.9 Dorsalgia, unspecified | CPT/HCPCS: 20553; 99213; J1030; J3490 ==

== ENCOUNTER → 2023-05-26 09:20 | Outpatient (BNVA) | payer MEDICARE, SELFPAY | PROVIDERS: PCP Family Medicine; Visit Provider Anesthesiology Pain Medicine | DX: M54.50 Low back pain, unspecified; M25.511 Pain in right shoulder; M25.512 Pain in left shoulder | CPT/HCPCS: 99214 ==

== ENCOUNTER → 2023-06-16 13:06 | Outpatient (BNVA) | payer MEDICARE, SELFPAY | PROVIDERS: PCP Family Medicine; Visit Provider Anesthesiology Pain Medicine | DX: M19.012 Primary osteoarthritis, left shoulder | CPT/HCPCS: 20610; J1030; J3490 ==

== ENCOUNTER → 2023-09-07 15:15 | Outpatient (BNVA) | payer MEDICARE, SELFPAY | PROVIDERS: PCP Family Medicine; Visit Provider Orthopaedic Surgery | DX: S93.491A Sprain of other ligament of right ankle, initial encounter; X50.9XXA Other and unspecified overexertion or strenuous movements or postures, initial encounter | CPT/HCPCS: 73610; 99213 ==

== ENCOUNTER → 2023-09-15 09:49 | Outpatient (BNVA) | payer MEDICARE, SELFPAY | PROVIDERS: PCP Family Medicine; Visit Provider Anesthesiology Pain Medicine | DX: M79.18 Myalgia, other site (principal); M25.512 Pain in left shoulder | CPT/HCPCS: 20553; 99214; J1030; J3490 ==

== ENCOUNTER → 2023-09-22 13:16 | Outpatient (BNVA) | payer MEDICARE, SELFPAY | PROVIDERS: PCP Family Medicine; Visit Provider Podiatrist Foot & Ankle Surgery | DX: M25.371 Other instability, right ankle; M20.41 Other hammer toe(s) (acquired), right foot; M20.42 Other hammer toe(s) (acquired), left foot; M21.621 Bunionette of right foot; M21.622 Bunionette of left foot; Z91.81 History of falling; M21.612 Bunion of left foot; M21.611 Bunion of right foot | CPT/HCPCS: 99203 ==

== ENCOUNTER → 2023-11-22 12:35 | Outpatient (BNVA) | payer MEDICARE, SELFPAY | PROVIDERS: PCP Family Medicine; Visit Provider Anesthesiology Pain Medicine | DX: M19.012 Primary osteoarthritis, left shoulder; M79.18 Myalgia, other site; M54.50 Low back pain, unspecified | CPT/HCPCS: 20610; 99214; J1010; J3490 ==

== ENCOUNTER → 2023-12-07 13:01 | Outpatient (BNVA) | payer MEDICARE, SELFPAY | PROVIDERS: PCP Family Medicine; Visit Provider Anesthesiology Pain Medicine | DX: K59.03 Drug induced constipation; T40.2X5A Adverse effect of other opioids, initial encounter; M79.18 Myalgia, other site; M19.011 Primary osteoarthritis, right shoulder; X58.XXXA Exposure to other specified factors, initial encounter | CPT/HCPCS: 20553; 20610; 99214; J1010; J3490 ==

== ENCOUNTER → 2023-12-30 13:14 | Outpatient (BNVA) | payer MEDICARE, SELFPAY | PROVIDERS: PCP Nurse Practitioner Family; Visit Provider Specialist | DX: K59.03 Drug induced constipation (principal); T40.2X5A Adverse effect of other opioids, initial encounter; G23.2 Striatonigral degeneration; G24.9 Dystonia, unspecified; M62.830 Muscle spasm of back; S32.010A Wedge compression fracture of first lumbar vertebra, initial encounter for closed fracture; G20.C Parkinsonism, unspecified; X58.XXXA Exposure to other specified factors, initial encounter | CPT/HCPCS: 99214; 99215 ==

== ENCOUNTER → 2024-01-11 14:53 | Outpatient (BNVA) | payer MEDICARE, SELFPAY | PROVIDERS: PCP Nurse Practitioner Family; Visit Provider Nurse Practitioner Family | DX: S42.91XA Fracture of right shoulder girdle, part unspecified, initial encounter for closed fracture (principal); W19.XXXA Unspecified fall, initial encounter | CPT/HCPCS: 73030 ==

== ENCOUNTER → 2024-02-02 09:34 | Outpatient (BNVA) | payer MEDICARE, SELFPAY | PROVIDERS: PCP Nurse Practitioner Family; Visit Provider Nurse Practitioner Family | DX: E11.9 Type 2 diabetes mellitus without complications (principal) | CPT/HCPCS: 80053; 80061; 82043; 82306; 83036; 84443 ==

== ENCOUNTER → 2024-04-14 09:50 | Outpatient (BNVA) | payer MEDICARE, SELFPAY | PROVIDERS: PCP Nurse Practitioner Family; Visit Provider Nurse Practitioner Family | DX: I10 Essential (primary) hypertension (principal) | CPT/HCPCS: 84443 ==

== ENCOUNTER → 2024-08-11 14:55 | Outpatient (BNVA) | payer MEDICARE, SELFPAY | PROVIDERS: PCP Nurse Practitioner Family; Visit Provider Specialist | DX: G24.1 Genetic torsion dystonia (principal); G24.9 Dystonia, unspecified | CPT/HCPCS: 64642; 99214 ==

== ENCOUNTER → 2024-11-10 12:38 | Outpatient (BNVA) | payer MEDICARE, SELFPAY | PROVIDERS: PCP Nurse Practitioner Family; Visit Provider Specialist | DX: G24.9 Dystonia, unspecified (principal); M62.830 Muscle spasm of back; G24.1 Genetic torsion dystonia | CPT/HCPCS: 64642; J9999 ==

== ENCOUNTER 2025-02-09 05:00 | Outpatient (RCR) | payer MEDICARE, SELFPAY | END 2025-03-11 23:59 | disposition home or self-care (01) | LOC: SOT 05:00 | PROVIDERS: PCP Nurse Practitioner Family; Visit Provider Nurse Practitioner Family | DX: R26.2 Difficulty in walking, not elsewhere classified (principal) | CPT/HCPCS: 97167 ==

== ENCOUNTER 2025-02-11 15:35 | Emergency (ER) | payer MEDICARE, SELFPAY ==
--- OUTSIDE RECORDS SUMMARY | 2024-08-31 05:10 | XMS_ITS ---
Author Organization [facility] Address [address] [place] [address] Care Team Providers Care Franchise Broker Name Role Phone Cyril Guido DO Primary Care Provider Unavail able Monisha Maldonado Unavailable [phone] Blu Strong Unavailable [phone] REASON FOR VISIT RT SHOULDER Medications Medication SIG (Take, Route, Frequency, Duration) Notes Start Date End Date Status Pioglitazone HCl Not -Taking Linezolid 600 MG Tablet 1 tablet Orally every 12 hrs; Duration: 14 days 02/06/2020 Not-Taking Tamsulosin HCl 0.4 MG Capsule 1 capsule Orally Once a day Not-Taking Levothyroxine Sodium Not-Taking diazePAM 5 MG Tablet 1 tablet Orally 30 min before procedure; Duration: 1 day 04/19/2020 Not-Taking Cipro 500 MG Tablet 1 tablet Orally ever y 12 hrs; Duration: 14 days 02/06/2020 Not-Taking HYDROcodone-Acetaminophen 5-325 MG Tablet 1 tablet as needed Orally every 6 hrs; Duration: 7 days Take 1 every 6-8 hours on a as needed basis 01/18/2024 Active Allopurinol Active traMADol HCl 50 MG Tablet 1 tablet as ne eded Orally Once a day 06/27/2024 Active metFORMIN HCl Active Encounters Encounter Location Date Provider Diagnosis [facility] [address] [place] [place] [address] 08/31/2024 Blu Strong Status post reverse total arthroplasty of right shoulder Z96.611 Assessments Encounter Date Diagnosis (ICD Code) Assessment Notes Treatment Notes Treatment Clinical Notes Section Notes 08/31/2024 Status post reverse total arthroplasty of right shoulder (ICD-10 - Z96.611) Plan Of Treatment Pending Test Test Name Order Date X-RAY EXAM OF SHOULDER-[id number] 08/31/2024 Next Appt Details Provider Name:Moinsha Block Joel , 02/12/2025 02:40:00 PM, [address] [facility] [facility], [place], [address], Provider Name:Blu Strong, 09/11/2025 10:00:00 AM, [address] [place] [address], [place], [address], Progress Notes * Ralf WHITT LDOB: (74 yo M)Acc No.[id number]:08/31/2024 Patient: Ralf Cota Provider: Jayme Strong M.D. :1950 A ge:73 Y S ex:Male Date:08/31/2024 Address:[address] [place] [address] , [id number] Pcp:Cyril Guido DO Subjective: * Chief Complaints: * R T SHOULDER * Medications: T akingAllopurinol HYDROcodone-Acetaminophen 5-325 MG Tablet 1 tablet as needed Orally every 6 hrs Take 1 every 6-8 hours on a as needed basismetFORMIN HCl traMADol HCl 50 MG Tablet 1 tablet as needed Orally Once a day Taking Allopurinol Taking HYDROcodone-Acetaminophen 5-325 MG Tablet 1 tablet as needed Orally every 6 hrs Take 1 every 6-8 hours on a as needed basisTaking metFORMIN HCl Taking traMADol HCl 50 MG Tablet 1 tablet as needed Orally Once a day Not-TakingCipro 500 MG Tablet 1 tablet Orally every 12 hrs diazePAM 5 MG Tablet 1 tablet Orally 30 min before procedure Levothyroxine Sodium Linezolid 600 MG Tablet 1 tablet Orally every 12 hrs Pioglitazone HCl Tamsulosin HCl 0.4 MG Capsule 1 capsule Orally Once a day Not- Taking Cipro 500 MG Tablet 1 tablet Orally every 12 hrs Not-Taking diazePAM 5 MG Tablet 1 tablet Orally 30 min before procedure Not-Taking Levothyroxine Sodium Not-Taking Linezolid 600 MG Tablet 1 tablet Orally every 12 hrs Not-Taking Pioglitazone HCl Not-Taking Tamsulosin HCl 0.4 MG Capsule 1 capsule Orally Once a day Assessment: * Assessment: 1. S tatus post reverse total arthroplasty of right shoulder - Z96.611 Plan: * Treatment: * Procedure Codes: 7 3030 X-RAY EXAM OF SHOULDER Billing Information: * Procedure Codes: 49112 X-RAY EXAM OF SHOULDER. * Electronic signature of Hosea Strong MD on 02/11/2025 at 03:42 PM CDT Sign off status: Pending * Provider: Jayme Strong M.D. Date: 0 08/31/2024 Generated for Princess souza/Aaron/Bushra on: 0 02/11/2025 03:42 PM CDT
--- OUTSIDE RECORDS SUMMARY | 2025-01-24 03:00 | XMS_ITS ---
Author Organization [facility] Address [address] [place] [address] Care Team Providers Care Client Services Vice President Name Role Phone Cyril Guido DO Primary Care Provider Unavail able Monisha Maldonado Unavailable [phone] REASON FOR VISIT RT HUMERUS ORIF Encounters Encounter Location Date Provider Diagnosis [facility] [address] [facility] [address] 01/24/2025 Monisha Maldonado Plan Of Treatment Next Appt Details Provider Name:Monisha Maldonado , 02/12/2025 02:40:00 PM, [address], [place], [address], Provider Name:Blu Strong, 09/11/2025 10:00:00 AM, [address] [facility], [place], [address], Progress Notes * Ralf WHITT LDOB: (74 yo M)Acc No.[id number]:01/24/2025 Patient: Ralf Cota Provider: Nikolai Maldonado MD :1950 A ge:74 Y S ex:Male Date:01/24/2025 Address:[address] [place] [address] [address] [place], [id number] Pcp:Cyril Guido DO Billing Information: * Procedure Codes: * Electronic signature of Jose Maldonado MD on 02/11/2025 at 03:42 PM CDT Sign off status: Pending * Provider: Nikolai Maldonado MD Date: 0 01/24/2025 Generated for Princess souza/Aaron/Bushra on: 0 02/11/2025 03:42 PM CDT
[2025-02-11 15:40] VITALS: BP 135/71; PULSE 72; RESP 17; TEMP 36.4; O2SAT 96; BMI 27.6
--- OUTSIDE RECORDS SUMMARY | 2025-02-11 15:42 | XMS_ITS | Encounter Summary ---
Author Organization [facility] Address [address] [place] [address] Care Team Providers Care Pilot Boat Captain Name Role Phone Unavailable Primary Care Provider Unavailabl e Encounter Details Date Type Department Care Team (Latest Contact Info) Description 06/19/2002 Outpatient Historical [facility] [place] [address] [facility] [address] [place] [id number] Arturo Aguirre MD NO ADDRESS ON FILE PERS HX URINARY CALCULI (Primary Dx) Social History Tobacco Use Types Packs/Day Years Used Date Smoking Tobacco: Never Assessed Sex and Gender Information Value Date Recorded Sex Assigned at Not on file 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
--- OUTSIDE RECORDS SUMMARY | 2025-02-11 15:42 | XMS_ITS | Encounter Summary ---
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
--- OUTSIDE RECORDS SUMMARY | 2025-02-11 15:42 | XMS_ITS | Encounter Summary ---
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
--- OUTSIDE RECORDS SUMMARY | 2025-02-11 15:42 | XMS_ITS | Encounter Summary ---
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
--- OUTSIDE RECORDS SUMMARY | 2025-02-11 15:42 | XMS_ITS | Encounter Summary ---
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
--- OUTSIDE RECORDS SUMMARY | 2025-02-11 15:42 | XMS_ITS | Encounter Summary ---
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
--- OUTSIDE RECORDS SUMMARY | 2025-02-11 15:42 | XMS_ITS | Encounter Summary ---
Author Organization [facility] Address [address] [place] [address] Care Team Providers Care Instant Powder Supervisor Name Role Phone Unavailable Primary Care Provider Unavailabl e Encounter Details Date Type Department Care Team (Latest Contact Info) Description 04/21/2002 Outpatient Historical [facility] [place] [address] [facility] [facility] [address] 3[address] [place] [phone] Arturo Aguirre MD NO ADDRESS ON FILE CALCULUS OF KIDNEY (Primary Dx) Social History Tobacco Use Types Packs/Day Years Used Date Smoking Tobacco: Never Assessed Sex and Gender Information Value Date Recorded Sex Assigned at Not on file 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
--- OUTSIDE RECORDS SUMMARY | 2025-02-11 15:42 | XMS_ITS | Patient Health Record ---
Author Organization [facility] Address [address] [place] [address] Care Team Providers Care Roof Panel Hanger Name Role Phone Billjuanasunny Derrick HAWTHORNEgiovanni Primary Care Provider Unavail able Monisha Maldonado Unavailable [phone] Migration, Provider Unavailable Unavailable Blu Strong Unavailable [phone] Allergies Allergen (clinical drug ingredient) Drug/Non Drug Allergy documented on EMR Reaction Allergy Type Onset Date Status celecoxib Celebrex Unknown Drug Allergy Active Penicillin Unknown Drug Allergy Active prednisone Prednisone Unknown Drug Allergy Activ e Results Component Value Reference Range Flag Notes Shoulder Min 1V Right Reviewed date:06/13/2024 04:20:27 PM Interpretation: Performing Lab: Notes/Report: [id number]&org=iSite Glucometer WBG--[id number] Reviewed date:01/25/2025 08:08:41 AM Interpretation: Performing Lab: Notes/Report: please can go up 5411 Glucometer WBG 117 65-110 MG/DL HI Asymptom atic~Meter: [id number]~Layaway Clerk: [id number] CARMEN SERRAECCA Shoulder Min 1V Right Reviewed date:06/14/2024 09:11:07 AM Interpretation: Performing Lab: Notes/Report: The report for this exam was dictated at [facility] . FINAL REPORT Read The report for this exam was dictated at [facility] . Glucometer WBG--[id number] Reviewed date:01/24/2025 07:53:56 AM Interpretation: Performing Lab: Notes/Report: please can go up 5411 Glucometer WBG 78 65-110 MG/DL Meter: [id number]~Layaway Clerk: [id number] CARMEN DALEY Glucometer WBG--[id number] Reviewed date:01/25/2025 01:19:20 PM Interpretation: Performing Lab: Notes/Report: please can go up 5411 Glucometer WBG 87 65-110 MG/DL Meter: [id number]~Layaway Clerk: [id number] QUEENIE HOOVER Glucometer WBG--[id number] Reviewed date:01/29/2025 10:11:02 AM Interpretation: Performing Lab: Notes/Report: please can go up 5411 Glucometer WBG 170 65-110 MG/DL HI Asymptom atic~Meter: [id number]~Layaway Clerk: [id number] NANCI RENO Glucometer WBG--[id number] Reviewed date:01/29/2025 10:11:23 AM Interpretation: Performing Lab: Notes/Report: please can go up 5411 Glucometer WBG 158 65-110 MG/DL HI Sliding Scale Given~Meter: [id number]~Layaway Clerk: [id number] QUEENIE HOOVER zzzFluoro >1h4 Reviewed date:01/25/2025 08:08:41 AM Interpretation: Performing Lab: Notes/Report: Fluoroscopy only. No dictation for this exam and accession number. FINAL REPORT please can go up Read Fluoroscopy only. No dictation for this exam and accession number. Glucometer WBG--[id number] Reviewed date:01/24/2025 07:54:10 AM Interpretation: Performing Lab: Notes/Report: please can go up 5411 Glucometer WBG 110 65-110 MG/DL Meter: [id number]~Layaway Clerk: [id number] [facility] CBC w\ Auto Diff 44708 (Not yet reviewed by provider) Interpretation: Performing Lab: Notes/Report: please can go up 5411 WBC 2.9 4.5-11.0 X10'3 LOW RBC 2.96 4.50-5.90 X10'6 LOW Hgb 9.5 13.5-17.5 G/DL LOW Hct 30.0 41.0-53.0 % LOW MCV 101.4 80.0-100.0 FL HI MCH 32.1 27.0-31.0 PG HI MCHC 31.7 31.0-37.0 G/DL Platelet 115 150-400 X10'3 LOW RDW-SD 55.2 35.0-49.0 FL HI RDW-CV 14.7 12.2-15.6 % MPV 9.8 9.2-12.0 FL Neutro Auto% 61.3 40.0-70.0 % Lymph Auto% 28.8 22.0-44.0 % [place] Auto% 7.9 3.0-7.0 % HI Eos Auto% 1.7 2.0-4.0 % LOW Baso Auto% 0.0 0.0-1.0 % Imm Gran% .3 .0-.4 % Neutro Abs 1.79 .80-7.70 Absolute Neutrophil Count 1790 NA Lymph Abs .84 .10-4.10 [place] Abs .23 .20-1.00 Eos Abs .05 .00-.40 Baso Abs .00 .00-.20 Imm Gran Abs .01 .00-.10 NRBC# .00 .00-.20 NRBC% .00 .00-.20 /100 intact WBC's Glucometer WBG--46790 Reviewed date:01/24/2025 11:57:37 AM Interpretation: Performing Lab: Notes/Report: please can go up 5411 Glucometer WBG 101 65-110 MG/DL Notify D r~Meter: [id number]~Layaway Clerk: [id number] WAGNER ENRICO Antibody Screen 64579 Reviewed date:01/25/2025 08:08:41 AM Interpretation: Performing Lab: Notes/Report: please can go up 5411 Blood Bank ID [id number] Unknown ABSC Interp Negative Glucometer WBG--[id number] Reviewed date:01/25/2025 08:08:41 AM Interpretation: Performing Lab: Notes/Report: please can go up 5411 Glucometer WBG 254 65-110 MG/DL HI Result N ot Confirmed~Meter: [id number]~Layaway Clerk: [id number] CARMEN SERRAECCA Glucometer WBG--94240 Reviewed date:01/25/2025 08:08:41 AM Interpretation: Performing Lab: Notes/Report: please can go up 5411 Glucometer WBG 215 65-110 MG/DL HI Asymptom atic~Meter: [id number]~Layaway Clerk: [id number] CARMEN DALEY Glucometer WBG--[id number] Reviewed date:01/29/2025 10:11:23 AM Interpretation: Performing Lab: Notes/Report: please can go up 5411 Glucometer WBG 189 65-110 MG/DL HI Asymptom atic~Meter: [id number]~Layaway Clerk: [id number] BRYAN MAI Glucometer WBG--16827 Reviewed date:01/29/2025 10:11:23 AM Interpretation: Performing Lab: Notes/Report: please can go up 5411 Glucometer WBG 95 65-110 MG/DL Meter: [id number]~Layaway Clerk: [id number] GIRISH GILLIS Glucometer WBG--[id number] Reviewed date:01/29/2025 10:11:23 AM Interpretation: Performing Lab: Notes/Report: please can go up 5411 Glucometer WBG 84 65-110 MG/DL Meter: [id number]~Layaway Clerk: [id number] ADAMS PAU Basic Metabolic Panel (BMP) 96543 (Not yet reviewed by provider) Interpretation: Performing Lab: Notes/Report: please can go up 5411 Sodium 137 136-145 MMOL/L Potassium 3.8 3.5-5.1 MMOL/L Chloride 101 98-107 MMOL/L CO2 25.8 20.0-31.0 MMOL/L Glucose Serum 76 71-110 MG/DL Testing p erformed at [facility], [address] [place] [address] [place] [address]. CLIA ID#: [id number] BUN 24 7-21 MG/DL HI Creat .79 .57-1.17 MG/DL Use of this assay is not recommended for patients undergoing treatment with phenindione, due to the potential for falsely depressed results. S-tdcqnv-k-benzoquin one imine (NAPQI) is a metabolite of acetaminophen, NAPQI concentrations of apparoximately 10 mg/L correlation to toxic levels of acetaminophen demonstrates a greater than or equil to 10% change in results. NAPQI concentrations greater than this may lead to falsely depressed results for patient samples. GFR 93.1 NA Calculation pe rformed from GFR calculator provided by the [employer]. Glomerular Filtration rate(GRF) is the best overall index of kidney function. Normal GFR varies according to age,sex, body size, and declines with age. The National Kidney Foundation recommends using the CKD-EPI Creatinine Equation(202) to estimate GFR. Anion Gap 14 5-15 BUN/Creat Ratio 30.4 12.0-20.0 % HI Calcium 8.7 8.7-10.4 MG/DL Osmo Serum,Calculated 287 280-300 MOSM/KG Magnesium (B) 11540 (Not yet reviewed by provider) Interpretation: Performing Lab: Notes/Report: please can go up 5411 Magnesium 1.8 1.8-2.4 MG/DL Basic Metabolic Panel (BMP) 83379 Reviewed date:01/29/2025 10:11:02 AM Interpretation: Performing Lab: Notes/Report: please can go up 5411 Sodium 137 136-145 MMOL/L Potassium 3.7 3.5-5.1 MMOL/L Chloride 102 98-107 MMOL/L CO2 25.4 20.0-31.0 MMOL/L Glucose Serum 94 71-110 MG/DL Testing p erformed at [facility], [address] [place] [address] [place] [address]. CLIA ID#: [id number] BUN 17 7-21 MG/DL Creat .76 .57-1.17 MG/DL F-jzxahy-t-benzoquin one imine (NAPQI) is a metabolite of acetaminophen, NAPQI concentrations of apparoximately 10 mg/L correlation to toxic levels of acetaminophen demonstrates a greater than or equil to 10% change in results. NAPQI concentrations greater than this may lead to falsely depressed results for patient samples. Use of this assay is not recommended for patients undergoing treatment with phenindione, due to the potential for falsely depressed results. GFR 94.1 NA Calculation pe rformed from GFR calculator provided by the National Kid[employer]. Glomerular Filtration rate(GRF) is the best overall index of kidney function. Normal GFR varies according to age,sex, body size, and declines with age. The National Kidney Foundation recommends using the CKD-EPI Creatinine Equation(202) to estimate GFR. Anion Gap 13 5-15 BUN/Creat Ratio 22.4 12.0-20.0 % HI Calcium 8.6 8.7-10.4 MG/DL LOW Osmo Serum,Calculated 285 280-300 MOSM/KG Magnesium (B) 63380 Reviewed date:01/29/2025 10:11:02 AM Interpretation: Performing Lab: Notes/Report: please can go up 5411 Magnesium 2.2 1.8-2.4 MG/DL Phosphorus (B) 82713 Reviewed date:01/29/2025 10:11:02 AM Interpretation: Performing Lab: Notes/Report: please can go up 5411 Phos 2.7 2.4-5.1 MG/DL Glucometer WBG--[id number] Reviewed date:01/29/2025 10:11:02 AM Interpretation: Performing Lab: Notes/Report: please can go up 5411 Glucometer WBG 81 65-110 MG/DL Meter: [id number]~Layaway Clerk: [id number] EMIGDIO CARLA Chest PA/Lat-30233 Reviewed date:06/14/2024 09:11:07 AM Interpretation: Performing Lab: Notes/Report: [email or web address]=[id number]&org=iSite Chest AP/Lateral Reviewed date:06/14/2024 09:11:07 AM Interpretation: Performing Lab: Notes/Report: [id number]&org=iSite Basic Metabolic Panel (BMP) 09636 Reviewed date:06/14/2024 09:11:07 AM Interpretation: Performing Lab: Notes/Report: Sodium 138 136-145 MMOL/L Potassium 4.0 3.5-5.1 MMOL/L Chloride 103 98-107 MMOL/L CO2 28.5 20.0-31.0 MMOL/L Glucose Serum 118 71-110 MG/DL HI Testing p erformed at [facility], [address] [place] [address] [place] [address]. CLIA ID#: [id number] BUN 23 7-21 MG/DL HI Creat .98 .57-1.17 MG/DL C-kszukn-z-benzoquin one imine (NAPQI) is a metabolite of acetaminophen, NAPQI concentrations of apparoximately 10 mg/L correlation to toxic levels of acetaminophen demonstrates a greater than or equil to 10% change in results. NAPQI concentrations greater than this may lead to falsely depressed results for patient samples. Use of this assay is not recommended for patients undergoing treatment with phenindione, due to the potential for falsely depressed results. GFR 81.5 NA Calculation pe rformed from GFR calculator provided by the National Kid[employer] Foundation. Glomerular Filtration rate(GRF) is the best overall index of kidney function. Normal GFR varies according to age,sex, body size, and declines with age. The National Kidney Foundation recommends using the CKD-EPI Creatinine Equation(2020) to estimate GFR. Anion Gap 10 5-15 BUN/Creat Ratio 23.5 12.0-20.0 % HI Calcium 9.7 8.7-10.4 MG/DL Osmo Serum,Calculated 291 280-300 MOSM/KG Humerus Min 2V Right-86105 Reviewed date:01/25/2025 01:19:20 PM Interpretation: Performing Lab: Notes/Report: See Below For Report Humerus Min 2V Right please can go up Read See Below For Report Magnesium (B) 56167 (Not yet reviewed by provider) Interpretation: Performing Lab: Notes/Report: please can go up 5411 Magnesium 1.7 1.8-2.4 MG/DL LOW Phosphorus (B) 95868 (Not ye t reviewed by provider) Interpretation: Performing Lab: Notes/Report: please can go up 5411 Phos 3.1 2.4-5.1 MG/DL Comprehensive Metabolic Pane l (CMP) 29282 (Not yet reviewed by provider) Interpretation: Performing Lab: Notes/Report: please can go up 5411 Glucose Serum 110 71-110 MG/DL Testing p erformed at [facility], [address] [place] [address] [place] [address]. CLIA ID#: [id number] BUN 19 7-21 MG/DL Creat .93 .57-1.17 MG/DL X-ujolgi-t-benzoquin one imine (NAPQI) is a metabolite of acetaminophen, NAPQI concentrations of apparoximately 10 mg/L correlation to toxic levels of acetaminophen demonstrates a greater than or equil to 10% change in results. NAPQI concentrations greater than this may lead to falsely depressed results for patient samples. Use of this assay is not recommended for patients undergoing treatment with phenindione, due to the potential for falsely depressed results. GFR 86.5 NA Calculation pe rformed from GFR calculator provided by the National [employer] Foundation. Glomerular Filtration rate(GRF) is the best overall index of kidney function. Normal GFR varies according to age,sex, body size, and declines with age. The National Kidney Foundation recommends using the CKD-EPI Creatinine Equation(2020) to estimate GFR. BUN/Creat Ratio 20.4 12.0-20.0 % HI Total Protein 6.5 5.8-8.0 G/DL Albumin 3.9 3.2-4.8 G/DL Globulin 2.6 2.3-3.5 G/DL Alb/Glob 1.5 0.8-2.2 Calcium 9.0 8.7-10.4 MG/DL Sodium 139 136-145 MMOL/L Potassium 4.0 3.5-5.1 MMOL/L Chloride 102 98-107 MMOL/L CO2 26.3 20.0-31.0 MMOL/L Anion Gap 15 5-15 Alk Phos 74 46-116 Bili Total .7 .3-1.2 MG/DL Use of this assay is not recommended for patients undergoing treatment with eltrombopag due to the potential for falsely elevated results. AST/SGOT 35 15-37 UNIT/L ALT/SGPT 17 12-78 UNIT/L Osmo Serum,Calculated 291 280-300 MOSM/KG Iron Level 56903 (Not yet re viewed by provider) Interpretation: Performing Lab: Notes/Report: please can go up 5411 Iron 26 65-175 MCG/DL LOW Per Iron as say instruction for Use(IFU), patients treated with metal-binding drugs (e.g.deferoxamine) may have depressed iron values as chelated iron may not properly react in the iron assay. Testing was performed with this assay method. Vitamin D Total (B) 00921 (N ot yet reviewed by provider) Interpretation: Performing Lab: Notes/Report: please can go up 5411 Vitamin D Total 42.2 30.0-100.0 ng/mL Deficiency: < 20 ng/mL Performed on the Siemens Bundle ItllProcureSafe IM Analyzer Insufficiency: 20??? < 30 ng/mL Sufficiency: 30???100 ng/mL Iron Binding Capacity Total 97072 (Not yet reviewed by provider) Interpretation: Performing Lab: Notes/Report: please can go up 5411 TIBC 289 250-450 NG/DL Vitamin B12 (B) 37167 (Not y et reviewed by provider) Interpretation: Performing Lab: Notes/Report: please can go up 5411 [id number] 239 211-911 pg/mL Thyroid Stimulating Hormone (TSH) 03974 (Not yet reviewed by provider) Interpretation: Performing Lab: Notes/Report: please can go up 5411 TSH .337 .358-3.740 MlU/ML LOW CBC w\ Auto Diff 61075 (Not yet reviewed by provider) Interpretation: Performing Lab: Notes/Report: please can go up 5411 WBC 6.0 4.5-11.0 X10'3 RBC 3.12 4.50-5.90 X10'6 LOW Hgb 10.2 13.5-17.5 G/DL LOW Hct 31.1 41.0-53.0 % LOW MCV 99.7 80.0-100.0 FL MCH 32.7 27.0-31.0 PG HI MCHC 32.8 31.0-37.0 G/DL Platelet 139 150-400 X10'3 LOW RDW-SD 53.1 35.0-49.0 FL HI RDW-CV 14.6 12.2-15.6 % MPV 9.7 9.2-12.0 FL Neutro Auto% 77.6 40.0-70.0 % HI Lymph Auto% 13.5 22.0-44.0 % LOW [place] Auto% 8.2 3.0-7.0 % HI Eos Auto% .0 2.0-4.0 % LOW Baso Auto% 0.2 0.0-1.0 % Imm Gran% .5 .0-.4 % HI Neutro Abs 4.64 .80-7.70 Absolute Neutrophil Count 4640 NA Lymph Abs .81 .10-4.10 [place] Abs .49 .20-1.00 Eos Abs .00 .00-.40 Baso Abs .01 .00-.20 Imm Gran Abs .03 .00-.10 NRBC# .00 .00-.20 NRBC% .00 .00-.20 /100 intact WBC's Glucometer WBG--36364 Reviewed date:01/24/2025 07:53:56 AM Interpretation: Performing Lab: Notes/Report: please can go up 5411 Glucometer WBG 89 65-110 MG/DL Meter: [id number]~Layaway Clerk: [id number] DANYEL KATY Glucometer WBG--79776 Reviewed date:01/24/2025 07:53:56 AM Interpretation: Performing Lab: Notes/Report: please can go up 5411 Glucometer WBG 139 65-110 MG/DL HI Asymptom atic~Meter: [id number]~Layaway Clerk: [id number] CARMEN DALEY Glucometer WBG--81761 Reviewed date:01/24/2025 07:53:56 AM Interpretation: Performing Lab: Notes/Report: please can go up 5411 Glucometer WBG 118 65-110 MG/DL HI Result N ot Confirmed~Meter: [id number]~Layaway Clerk: [id number] GIRISH GILLIS Chest 1V Reviewed date:01/24/2025 07:54:24 AM Interpretation: Performing Lab: Notes/Report: See Below For Report Chest 1V please can go up Read See Below For Report IH Shoulder Min 3V Right - 7 3030 Reviewed date:09/11/2024 08:53:12 AM Interpretation: Performing Lab: Notes/Report: [id number]&org=iSite IH Shoulder Min 3V Right - 7 0 Reviewed date:07/26/2024 02:44:51 PM Interpretation: Performing Lab: Notes/Report: The report for this exam was dictated at [facility] . FINAL REPORT COVID 19 PCR--69737 Reviewed date:01/30/2025 04:40:48 PM Interpretation: Performing Lab: Notes/Report: please can go up 5411 COVID 19 PCR Negative Reference Range: Negative NEGATIVE RESULT does not preclude SARS-CoV-2 infection and should not be used as the sole basis for treatment or other patient managment decisions. All test results must be correlated with the patient's clinical presentation, history, and other diagnostic information for treatment or other patient management decisions. POSITIVE RESULT indicates active infection with SARS-CoV-2. Positive results do not rule out bacterial infection or co-infection with other viruses. Performed using [employer]pert. INVALID RESULT does not indicate the presence or absence of SARS-CoV-2 infection. The test must be repeated. If a second invalid result is obtained, consider confirmation by a different method if indicated by the patient's condition. IH Shoulder Min 3V Right - 7 0 Reviewed date:03/01/2024 04:29:34 PM Interpretation: Performing Lab: Notes/Report: [email or web address]=[id number]&org=iSite IH Shoulder Min 3V Right - 7 3030 Reviewed date:03/01/2024 04:39:43 PM Interpretation: Performing Lab: Notes/Report: The report for this exam was dictated at [facility] . FINAL REPORT IH Shoulder Min 3V Right - 7 3030 Reviewed date:04/05/2024 01:43:46 PM Interpretation: Performing Lab: Notes/Report: The report for this exam was dictated at [facility] . FINAL REPORT CBC w\ Auto Diff 76048 Reviewed date:06/14/2024 09:11:07 AM Interpretation: Performing Lab: Notes/Report: WBC 4.9 4.5-11.0 X10'3 RBC 3.27 4.50-5.90 X10'6 LOW Hgb 10.0 13.5-17.5 G/DL LOW Hct 31.2 41.0-53.0 % LOW MCV 95.4 80.0-100.0 FL MCH 30.6 27.0-31.0 PG MCHC 32.1 31.0-37.0 G/DL Platelet 312 150-400 X10'3 RDW-SD 50.2 35.0-49.0 FL HI RDW-CV 14.2 12.2-15.6 % MPV 9.4 9.2-12.0 FL Neutro Auto% 73.9 40.0-70.0 % HI Lymph Auto% 18.6 22.0-44.0 % LOW [place] Auto% 6.5 3.0-7.0 % Eos Auto% .8 2.0-4.0 % LOW Baso Auto% 0.0 0.0-1.0 % Imm Gran% .2 .0-.4 % Neutro Abs 3.61 .80-7.70 Absolute Neutrophil Count 3610 NA Lymph Abs .91 .10-4.10 [place] Abs .32 .20-1.00 Eos Abs .04 .00-.40 Baso Abs .00 .00-.20 Imm Gran Abs .01 .00-.10 NRBC# .00 .00-.20 NRBC% .00 .00-.20 /100 intact WBC's Chest AP/Lateral Reviewed date:06/14/2024 09:11:07 AM Interpretation: Performing Lab: Notes/Report: See Below For Report Chest AP/Lateral Read See Below For Report Glucometer WBG--[id number] Reviewed date:06/22/2024 11:19:45 AM Interpretation: Performing Lab: Notes/Report: Glucometer WBG 176 65-110 MG/DL HI Sliding Scale Given~Meter: [id number]~Layaway Clerk: [id number] ERNIE PAPPAS Glucometer WBG--[id number] Reviewed date:01/29/2025 10:11:02 AM Interpretation: Performing Lab: Notes/Report: please can go up 5411 Glucometer WBG 166 65-110 MG/DL HI Asymptom atic~Meter: [id number]~Layaway Clerk: [id number] NANCI ROWDY Shoulder Min 1V Right Reviewed date:06/22/2024 11:19:45 AM Interpretation: Performing Lab: Notes/Report: See Below For Report Shoulder 1V Right Read See Below For Report Glucometer WBG--[id number] Reviewed date:06/22/2024 11:19:35 AM Interpretation: Performing Lab: Notes/Report: Glucometer WBG 127 65-110 MG/DL HI No Treat ment Needed~Meter: [id number]~Layaway Clerk: [id number] ANTONIO LUX Shoulder Min 3V Right - 7 3030 Reviewed date:09/11/2024 08:48:15 AM Interpretation: Performing Lab: Notes/Report: The report for this exam was dictated at [facility] . FINAL REPORT Ferritin 90860 (Not yet revi ewed by provider) Interpretation: Performing Lab: Notes/Report: please can go up 5411 Ferritin 69 8-388 NG/ML Folate 33160 (Not yet review ed by provider) Interpretation: Performing Lab: Notes/Report: please can go up 5411 Folate 9.85 5.38-24.00 ng/mL Referenc e Range: 5.38->24.00. Patient dosage up to or equal to 50 ng/ml of Biotin (vitamin B7) can potentially increase or decrease results of folate assay with a less than 10% bias. Concentrations of Biotin greater than 50ng/ml can potentially increase or decrease results of Folate assay with a greater than 10% bias. Glucometer WBG--66599 Reviewed date:01/29/2025 10:11:02 AM Interpretation: Performing Lab: Notes/Report: please can go up 5411 Glucometer WBG 170 65-110 MG/DL HI Meter: [id number]~Layaway Clerk: [id number] EMIGDIO AGUIRRE Glucometer WBG--88654 Reviewed date:01/29/2025 10:11:02 AM Interpretation: Performing Lab: Notes/Report: please can go up 5411 Glucometer WBG 127 65-110 MG/DL HI Asymptom atic~Meter: [id number]~Layaway Clerk: [id number] SALMASHIVANI RENO Glucometer WBG--80315 Reviewed date:01/29/2025 10:11:02 AM Interpretation: Performing Lab: Notes/Report: please can go up 5411 Glucometer WBG 165 65-110 MG/DL HI See Documentation~Meter: [id number]~Layaway Clerk: [id number] GIRISH GILLIS Glucometer WBG--43443 Reviewed date:01/25/2025 08:08:41 AM Interpretation: Performing Lab: Notes/Report: please can go up 5411 Glucometer WBG 169 65-110 MG/DL HI See Documentation~Meter: [id number]~Layaway Clerk: [id number] GIRISH GILLIS Humerus Min 2V Right-75998 Reviewed date:01/25/2025 08:08:41 AM Interpretation: Performing Lab: Notes/Report: [id number]&org=iSite Basic Metabolic Panel (BMP) 72843 (Not yet reviewed by provider) Interpretation: Performing Lab: Notes/Report: please can go up 5411 Sodium 140 136-145 MMOL/L Potassium 4.0 3.5-5.1 MMOL/L Chloride 105 98-107 MMOL/L CO2 25.4 20.0-31.0 MMOL/L Glucose Serum 97 71-110 MG/DL Testing p erformed at [facility], [address] [place] [address] [place] [address]. CLIA ID#: [id number] BUN 18 7-21 MG/DL Creat .86 .57-1.17 MG/DL R-dcuqfi-r-benzoquin one imine (NAPQI) is a metabolite of acetaminophen, NAPQI concentrations of apparoximately 10 mg/L correlation to toxic levels of acetaminophen demonstrates a greater than or equil to 10% change in results. NAPQI concentrations greater than this may lead to falsely depressed results for patient samples. Use of this assay is not recommended for patients undergoing treatment with phenindione, due to the potential for falsely depressed results. GFR 90.8 NA Calculation pe rformed from GFR calculator provided by the [employer] Kid[employer]. Glomerular Filtration rate(GRF) is the best overall index of kidney function. Normal GFR varies according to age,sex, body size, and declines with age. The National Kidney Foundation recommends using the CKD-EPI Creatinine Equation(2020) to estimate GFR. Anion Gap 14 5-15 BUN/Creat Ratio 20.9 12.0-20.0 % HI Calcium 8.8 8.7-10.4 MG/DL Osmo Serum,Calculated 292 280-300 MOSM/KG Chest 1V Reviewed date:01/23/2025 07:44:52 AM Interpretation: Performing Lab: Notes/Report: [id number]&org=iSite CT UE w/o Contrast Right-732 00 Reviewed date:01/24/2025 12:13:03 PM Interpretation: Performing Lab: Notes/Report: See Below For Report CT UE w/o Contrast Right please can go up Read See Below For Report IH Shoulder Min 3V Right - 7 3030 Reviewed date:07/26/2024 03:04:16 PM Interpretation: Performing Lab: Notes/Report: [id number]&org=iSite Glucometer WBG--55751 Reviewed date:06/22/2024 11:19:35 AM Interpretation: Performing Lab: Notes/Report: Glucometer WBG 197 65-110 MG/DL HI REFUSED SS INSULIN~Meter: [id number]~Layaway Clerk: [id number] CT MATOS Shoulder Min 1V Right Reviewed date:06/22/2024 11:20:03 AM Interpretation: Performing Lab: Notes/Report: [id number]&org=iSite BB ABOR-66019,08325 Reviewed date:06/22/2024 11:19:45 AM Interpretation: Performing Lab: Notes/Report: BB ABORh Interp O POS Unknown IH Shoulder Min 3V Right - 7 3030 Reviewed date:04/05/2024 01:43:15 PM Interpretation: Performing Lab: Notes/Report: [email or web address]=[id number]&org=Arcenio Lozada 80349, 56921 Reviewed date:06/22/2024 11:19:45 AM Interpretation: Performing Lab: Notes/Report: Must be collected within 7 days of surgery. ABO/Rh Interp O POS Unknown Antibody Screen [id number] Reviewed date:06/22/2024 11:19:45 AM Interpretation: Performing Lab: Notes/Report: Blood Bank ID [id number] Unknown ABSC Interp Negative UA Reflex Micro, Reflex Cult 01367, 20277, 90933 Reviewed date:06/22/2024 11:19:45 AM Interpretation: Performing Lab: Notes/Report: Color UA Yellow NA Clarity UA Clear NA Specific gravity UA 1.009 1.005-1.030 Urine pH 7.0 5.0-8.0 NA Urine Glucose Negative NA Urine Bilirubin Negative NA Urine Ketone Negative NA Urine Blood Negative NA Urine Protein Negative NA Urobilinogen 0.2 0.1-1.0 NA Urine Nitrite Negative NA Urine Leukocyte Negative NA Normal UA Yes Urine Culture No PRBC-LR--[id number] Reviewed date:06/22/2024 11:19:45 AM Interpretation: Performing Lab: Notes/Report: Number of Units 2 NA Product Type Blood Product NA Glucometer WBG--[id number] Reviewed date:06/22/2024 11:19:45 AM Interpretation: Performing Lab: Notes/Report: Glucometer WBG 139 65-110 MG/DL HI Notify D r~Meter: [id number]~[facility] Clerk: [id number] WAGNER ENRICO Glucometer WBG--[id number] Reviewed date:06/22/2024 11:19:35 AM Interpretation: Performing Lab: Notes/Report: Glucometer WBG 155 65-110 MG/DL HI See Documentation~Meter: [id number]~[facility] Clerk: [id number] ANTONIO BONNER Glucometer WBG--[id number] Reviewed date:06/22/2024 11:19:23 AM Interpretation: Performing Lab: Notes/Report: Glucometer WBG 170 65-110 MG/DL HI Result N ot Confirmed~Meter: [id number]~[facility] Clerk: [id number] ERNIE PAPPAS Glucometer WBG--[id number] Reviewed date:06/22/2024 11:19:23 AM Interpretation: Performing Lab: Notes/Report: Glucometer WBG 118 65-110 MG/DL HI Result N ot Confirmed~Meter: [id number]~[facility] Clerk: [id number] TORRES LOVING Glucometer WBG--[id number] Reviewed date:01/23/2025 07:44:52 AM Interpretation: Performing Lab: Notes/Report: please can go up 5411 Glucometer WBG 183 65-110 MG/DL HI Asymptom atic~Meter: [id number]~[facility] Clerk: [id number] CARMEN DALEY Glucometer WBG--[id number] Reviewed date:01/23/2025 07:44:52 AM Interpretation: Performing Lab: Notes/Report: please can go up 5411 Glucometer WBG 141 65-110 MG/DL HI Meter: [id number]~[facility] Clerk: [id number] CAREMN DALEY ABORh [id number], [id number] Reviewed date:01/25/2025 08:08:41 AM Interpretation: Performing Lab: Notes/Report: please can go up 5411 ABO/Rh Interp O POS Unknown CBC w\ Auto Diff 95822 (Not yet reviewed by provider) Interpretation: Performing Lab: Notes/Report: please can go up 5411 WBC 5.1 4.5-11.0 X10'3 RBC 2.84 4.50-5.90 X10'6 LOW Hgb 9.4 13.5-17.5 G/DL LOW Hct 27.9 41.0-53.0 % LOW MCV 98.2 80.0-100.0 FL MCH 33.1 27.0-31.0 PG HI MCHC 33.7 31.0-37.0 G/DL Platelet 162 150-400 X10'3 RDW-SD 52.9 35.0-49.0 FL HI RDW-CV 14.5 12.2-15.6 % MPV 10.2 9.2-12.0 FL Neutro Auto% 71.8 40.0-70.0 % HI Lymph Auto% 18.8 22.0-44.0 % LOW [place] Auto% 8.2 3.0-7.0 % HI Eos Auto% .4 2.0-4.0 % LOW Baso Auto% 0.2 0.0-1.0 % Imm Gran% .6 .0-.4 % HI Neutro Abs 3.68 .80-7.70 Absolute Neutrophil Count 3680 NA Lymph Abs .96 .10-4.10 [place] Abs .42 .20-1.00 Eos Abs .02 .00-.40 Baso Abs .01 .00-.20 Imm Gran Abs .03 .00-.10 NRBC# .00 .00-.20 NRBC% .00 .00-.20 /100 intact WBC's Glucometer WBG--[id number] Reviewed date:01/29/2025 10:11:02 AM Interpretation: Performing Lab: Notes/Report: please can go up 5411 Glucometer WBG 175 65-110 MG/DL HI Result N ot Confirmed~Meter: [id number]~[facility] Clerk: [id number] BRYAN MAI Phosphorus (B) 23518 (Not ye t reviewed by provider) Interpretation: Performing Lab: Notes/Report: please can go up 5411 Phos 3.2 2.4-5.1 MG/DL Glucometer WBG--49253 Reviewed date:01/29/2025 10:11:02 AM Interpretation: Performing Lab: Notes/Report: please can go up 5411 Glucometer WBG 84 65-110 MG/DL Meter: [id number]~[place] Clerk: [id number] ADAMS PAU Glucometer WBG--01171 Reviewed date:01/29/2025 10:11:02 AM Interpretation: Performing Lab: Notes/Report: please can go up 5411 Glucometer WBG 120 65-110 MG/DL HI No Treat ment Needed~Meter: [id number]~[place] Clerk: [id number] EMIGDIO CARLA Glucometer WBG--[id number] Reviewed date:01/29/2025 10:11:02 AM Interpretation: Performing Lab: Notes/Report: please can go up 5411 Glucometer WBG 118 65-110 MG/DL HI Meter: [id number]~[facility] Clerk: [id number] EMIGDIO CARLA Glucometer WBG--[id number] Reviewed date:01/29/2025 10:11:02 AM Interpretation: Performing Lab: Notes/Report: please can go up 5411 Glucometer WBG 131 65-110 MG/DL HI Asymptom atic~Meter: [id number]~[facility] Clerk: [id number] NANCI RENO Reason For Referral No Information Medications Medication SIG (Take, Route, Frequency, Duration) Notes Start Date End Date Status traMADol HCl 50 MG Tablet 1 tablet as needed Orally Once a day 06/27/2024 Active Tamsulosin HCl 0.4 MG Capsule TAKE 1 CAPSULE BY MOUTH ONCE DAILY Oral; Duration: 90 Days Active Simvastatin 20 MG Tablet TAKE 1 TABLET BY MOUTH ONCE DAILY Oral; Duration: 90 Days Active Pioglitazone HCl 45 MG Tablet Oral; Duration: 90 Days Acti ve Tamsulosin HCl 0.4 MG Capsule 1 capsule Orally Once a day Not-Taking Movantik 25 MG Tablet Oral; Duration: 30 Days Active Pioglitazone HCl Not -Taking Levothyroxine Sodium 125 MCG Tablet Oral; Duration: 90 Days Ac tive metFORMIN HCl Not-Ta keyanna glipiZIDE 10 MG Tablet TAKE 1 TABLET BY MOUTH TWICE DAILY Oral; Duration: 90 Days Active Linezolid 600 MG Tablet 1 tablet Orally every 12 hrs; Duration: 14 days 02/06/2020 Not-Takin g Cefadroxil 500 MG Capsule TAKE 1 CAPSULE BY MOUTH TWICE DAILY FOR 14 DAYS Oral; Duration: 14 Days Active Levothyroxine Sodium Not-Taking Allopurinol Active Cipro 500 MG Tablet 1 tablet Orally ever y 12 hrs; Duration: 14 days 02/06/2020 Not-Takin g Botox 100 UNIT Solution Reconstituted Administer 400 units INTRAMUSCULARLY EVERY 90 DAYS; 300 units bilateral gastrocnemius, 100 units bilateral soleus Injection; Duration: 90 Days Active HYDROcodone-Acetaminoph en 5-325 MG Tablet 1 tablet as needed Orally every 6 hrs; Duration: 7 days Take 1 every 6-8 hours on a as needed basis 01/18/2024 Not-Taking diazePAM 5 MG Tablet 1 tablet Orally 30 min before procedure; Duration: 1 day 04/19/2020 Not-Taking Social History Tobacco Use: Social History Observation Description Date Details (start date - stop date) Never Smoker NA - NA Social History Depression Screening Social Info Question Answer Notes PHQ-9 Little interest or pleasure in doing thin gs Not at all Feeling down, depressed, or hopeless Not at all Trouble falling or staying asleep, or sleeping t oo much Not at all Feeling tired or having little energy Several da ys Poor appetite or overeating Not at all Feeling bad about yourself, or that you are a failure, or have let yourself or your family down Not at all Trouble concentrating on thi ngs, such as reading the newspaper or watching television Not at all Moving or speaking so slowly that other people could have noticed. Or the opposite ? being so fidgety or restless that you have been moving around a lot more than usual Not at all Thoughts that you would be b prerna off , or of hurting yourself in some way Not at all Total Score 1 Interpretation Minimal Depression Drugs/Alcohol: Social Info Question Answer Notes Alcohol Screen (Audit-C) Did you have a drink containing alcohol in the past year? 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) Displaced fracture of glenoid cavity of scapula, right shoulder, subsequent encounter for fracture with nonunion (S42.141K) Active confirmed Problem Shoulder joint prosthesis present (finding) (066239617) Presence of unspecified artificial shoulder joint (Z96.619) Active confirmed Problem Status post righ t shoulder hemiarthroplasty (Z96.611) Active confirmed Problem 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) Active confirmed Problem 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 confirmed 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) Infection of prosthetic joint, initial encounter (T84.50XA) Active confirmed Problem Parkinson's disease (disorder) (76548962) Parkinson disease, symptomatic (G20.A1) Active confirmed Vital Signs Heart Rate 65 /min 09/07/2024 Temperature 97.6 degrees Fahrenheit 04/04/2024 Respiratory Rate 19 /min 04/04/2024 Oximetry 100 % 09/07/2024 Blood pressure diastolic 80 mm Hg 09/07/2024 Height-cm 155.45 cm 09/07/2024 Weight-kg 87.54 kg 09/07/2024 Height 61.2 in 09/07/2024 Blood pressure systolic 118 mm Hg 09/07/2024 Weight 193 lbs 09/07/2024 BMI 36.23 kg/m2 09/07/2024 Encounters Encounter Location Date Provider Diagnosis [facility] [address] [place] [address] 06/13/2024 Blu Strong Status post reverse total arthroplasty of right shoulder Z96.611 ; Encounter for other preprocedural examination Z01.818 ; Dislocation of other internal joint prosthesis, initial encounter T84.028A and Presence of unspecified artificial shoulder joint Z96.619 [facility] [address] [place] [address] 04/04/2024 Blu Strong Displaced fracture o f glenoid cavity of scapula, right shoulder, subsequent encounter for fracture with routine healing S42.141D and Displaced fracture of neck of scapula, right shoulder, subsequent encounter for fracture with routine healing S42.151D [facility] [address] [place] [address] 02/22/2024 Blu Strong Status post reverse total arthroplasty of right shoulder Z96.611 and Closed nondisplaced fracture of glenoid cavity of right scapula with routine healing, subsequent encounter S42.144D [facility] [address] [place] [address] 07/20/2024 Blu Strong Status post reverse total arthroplasty of right shoulder Z96.611 and Status post right shoulder hemiarthroplasty Z96.611 [facility] [address] [place] [address] 06/27/2024 Blu Strong Status post shoulder surgery Z98.890 [facility] [place] [address] [place] [address] 06/19/2024 Blu Strong [facility] [address] [place] [address] 09/07/2024 Blu Strong Status post reverse total arthroplasty of right shoulder Z96.611 and Status post right shoulder hemiarthroplasty Z96.611 [facility] [address] [place] [address] 01/24/2025 Monisha Maldonado [facility]rated[facility]Fac[facility] 0 0 05/07/2024 Provider Migration [facility] 0 0 05/06/2024 Provider Migration [facility] [address] [place] [address] 06/14/2024 Blu Strong [facility] [address] [place] [address] 06/14/2024 Blu Strong Assessments Encounter Date Diagnosis (ICD Code) Assessment Notes Treatment Notes Treatment Clinical Notes Section Notes 02/22/2024 Status post reverse total arthroplasty of right shoulder (ICD-10 - Z96.611) 02/22/2024 Closed nondisplaced fracture of glenoid cavity of right scapula with routine healing, subsequent encounter (ICD-10 - S42.144D) This fracture appears to be healing. Furthermore his reverse shoulder arthroplasty appears to be stable. I have told his he can discontinue his sling at this time. He may start using this arm to push off with. Will see him in about 6 weeks with x-rays. 04/04/2024 Displaced fracture of glenoid cavity of scapula, right shoulder, subsequent encounter for fracture with routine healing (ICD-10 - S42.141D) 04/04/2024 Displaced fracture of neck of scapula, right shoulder, subsequent encounter for fracture with routine healing (ICD-10 - S42.151D) This individual x-rays look good. The fracture looks basically healed. Thankfully the shoulder is located. I want him to go ahead and start using this as best he can. It is difficult for him because he has Parkinson's disease and walks stooped over almost 80 degrees. He utilizes a walker to get about. Recheck in 3 months. He has tramadol for pain and I told him to take them as he needs them. 06/13/2024 Status post reverse total arthroplasty of right shoulder (ICD-10 - Z96.611) This individual suffered a glenoid fracture sometime past. It obviously went to nonunion and has refractured with dislocation of his glenosphere superiorly. The shoulder itself is dislocated. I reviewed this case with my associate. Both of us are complete agreement. Considering this man significant history of Parkinson's disease and other infirmary I think that trying to reconstitute this is unfeasible. We will proceed with explantation of the right total shoulder arthroplasty. I may have to leave the stem and but certainly the humeral component side as well as the glenosphere will be extracted. I may be able to put a bone graft in this area. If it is feasible we will do this 06/27/2024 Status post shoulder surgery (ICD-10 - Z98.890) This individual's wound looks good. He is in less pain. There is less swelling in the arm. I have gone over his postop x-rays with he and his . I want him to continue his brace. We will recheck in 3 weeks. 07/20/2024 Status post right shoulder hemiarthroplasty (ICD-10 - Z96.611) 07/20/2024 Status post reverse total arthroplasty of right shoulder (ICD-10 - Z96.611) This individual is seen today for follow-up salvage hemiarthroplasty of the right shoulder secondary to glenoid fracture. He has been in an immobilizer for about 4 weeks from surgery. He himself notes improvement. His x-rays today look excellent. I think we can let him discontinue his brace for light activities. He at this time is now transition to a motorized wheelchair because of his extreme Parkinson's. 09/07/2024 Status post right shoulder hemiarthroplasty (ICD-10 - Z96.611) This individual's x-rays of his right shoulder look good. This was a salvage procedure secondary to a displaced glenoid fracture with dislocation of his reverse shoulder arthroplasty. This man is relatively pain-free and has some function of the shoulder. We will recheck in 1 year. 09/07/2024 Status post reverse total arthroplasty of right shoulder (ICD-10 - Z96.611) 06/13/2024 Encounter for other preprocedural examination (ICD-10 - Z01.818) 06/13/2024 Dislocation of other internal joint prosthesis, initial encounter (ICD-10 - T84.028A) 06/13/2024 Presence of unspecified artificial shoulder joint (ICD-10 - Z96.619) Plan Of Treatment Pending Test Test Name Order Date X-RAY EXAM OF SHOULDER-82627 02/01/2024 X-RAY EXAM OF SHOULDER-30594 02/22/2024 X-RAY EXAM OF SHOULDER-43016 04/04/2024 X-RAY EXAM OF SHOULDER-33639 06/13/2024 X-RAY EXAM OF SHOULDER-32204 08/31/2024 X-RAY EXAM OF SHOULDER-03344 07/20/2024 X-RAY EXAM OF SHOULDER-66846 09/07/2024 Prothrombin Time 28505 02/07/2020 Prothrombin Time 74576 02/20/2020 Basic Metabolic Panel (BMP) 81380 2024 Basic Metabolic Panel (BMP) 95902 2024 CBC w\ Auto Diff 19276 01/27/2025 CBC w\ Auto Diff 66310 01/25/2025 CBC w\ Auto Diff 85652 01/24/2025 Comprehensive Metabolic Panel (CMP) 8005 3 01/25/2025 Ferritin 20821 01/25/2025 Folate 86841 01/25/2025 Iron Binding Capacity Total 79023 2024 Iron Level 44310 01/25/2025 Magnesium (B) 36410 01/25/2025 Magnesium (B) 28059 01/27/2025 Partial Thromboplastin Time 49392 2019 Partial Thromboplastin Time 69994 2019 Phosphorus (B) 56558 01/27/2025 Phosphorus (B) 33469 01/25/2025 Thyroid Stimulating Hormone (TSH) 96099 01/25/2025 Vitamin B12 (B) 67203 01/25/2025 Vitamin D Total (B) 42974 01/25/2025 CBC w\ Manual Diff 05814, 03014 06/13/20 24 Electrocardiogram 12 Lead Tracing-00421 06/13/2024 Glucometer WBG--49270 02/22/2020 COVID 19 PCR--05441 02/20/2020 COVID 19 PCR--55875 02/07/2020 zzzCT Outside CD 10/31/2019 zzzCT Outside CD 10/31/2019 zzzCT Outside CD 10/31/2019 zzzCT Outside CD 10/31/2019 CT UE w/o Contrast Right ZBShoulder-7320 0 01/18/2024 Next Appt Details Provider Name:Monisha Maldonado , 02/12/2025 02:40:00 PM, [address] [facility], [place], [address], Provider Name:Blu Suggs Tae, 09/11/2025 10:00:00 AM, [address] [facility], [place], [address], Insurance Providers Payer Name Payer Address Payer Phone Subscriber Number Group Number Insured Name Patient Relationship to Insured Coverage Start Date Coverage End Date [employer] [place] [employer] Replacement [address] [place] [address] [id number] 0 Ralf Herrera Self - patient is the insured Medical (General) History Medical History History ICD Code diabetes kidney stones Arthritis Back Trouble Surgical History Surgery Date(Month/Year) reverse shoulder back stimulater Right Reverse TSA 06/19/2024 Hospitalization History Reason Date(Month/Year) see surgery
--- OUTSIDE RECORDS SUMMARY | 2025-02-11 15:42 | XMS_ITS | Encounter Summary ---
Author Organization [facility] Address [address] [place] [address] Care Team Providers Care Pediatric Urologist Name Role Phone Unavailable Primary Care Provider Unavailabl e Encounter Details Date Type Department Care Team (Latest Contact Info) Description 03/27/2002 Outpatient Historical [facility]- [place] [address] [facility] [address], [address] [place] [address] Arturo Aguirre MD NO ADDRESS ON FILE CALCULUS OF URETER (Primary Dx) Social History Tobacco Use Types Packs/Day Years Used Date Smoking Tobacco: Never Assessed Sex and Gender Information Value Date Recorded Sex Assigned at Not on file 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
--- OUTSIDE RECORDS SUMMARY | 2025-02-11 15:43 | XMS_ITS | Encounter Summary ---
Author Organization [facility] Address [address] [place] [address] Care Team Providers Care Auditing Control Clerk Name Role Phone Unavailable Primary Care Provider Unavailabl e Encounter Details Date Type Department Care Team (Latest Contact Info) Description 06/19/2002 Outpatient Historical [facility]- [place] [address] [address] [address] [place] [phone] Arturo Aguirre MD NO ADDRESS ON FILE CALCULUS OF KIDNEY (Primary Dx) Social History Tobacco Use Types Packs/Day Years Used Date Smoking Tobacco: Never Assessed Sex and Gender Information Value Date Recorded Sex Assigned at Not on file 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
--- OUTSIDE RECORDS SUMMARY | 2025-02-11 15:43 | XMS_ITS | Encounter Summary ---
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
--- OUTSIDE RECORDS SUMMARY | 2025-02-11 15:43 | XMS_ITS | Encounter Summary ---
Author Organization [facility] Address [address] [place] [address] Care Team Providers Care Medical Dir Name Role Phone Unavailable Primary Care Provider Unavailabl e Encounter Details Date Type Department Care Team (Latest Contact Info) Description 04/10/2002 Outpatient Historical [facility]- [place] [address] [address] 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
--- OUTSIDE RECORDS SUMMARY | 2025-02-11 15:43 | XMS_ITS | Encounter Summary ---
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
--- OUTSIDE RECORDS SUMMARY | 2025-02-11 15:43 | XMS_ITS | Encounter Summary ---
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
--- OUTSIDE RECORDS SUMMARY | 2025-02-11 15:43 | XMS_ITS | Encounter Summary ---
Author Organization [facility] Address [address] [place] [address] Care Team Providers Care Health Commissioner Name Role Phone Unavailable Primary Care Provider Unavailabl e Encounter Details Date Type Department Care Team (Latest Contact Info) Description 05/26/2002 Outpatient Historical [facility] [address] [place] [address] Arturo Aguirre MD NO ADDRESS ON FILE CALCULUS OF URETER (Primary Dx) Social History Tobacco Use Types Packs/Day Years Used Date Smoking Tobacco: Never Assessed Sex and Gender Information Value Date Recorded Sex Assigned at Not on file 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
--- OUTSIDE RECORDS SUMMARY | 2025-02-11 15:43 | XMS_ITS | Clinical Summary ---
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
--- NOTE | 2025-02-11 15:52 | XRR_ITS ---
PROCEDURE INFORMATION: Exam: XR Pelvis Exam date and time: 02/11/2025 4:14 PM Age: 74 years old Clinical indication: Pelvic pain; Additional info: Fall TECHNIQUE: Imaging protocol: Radiologic exam of the pelvis. Views: 1 or 2 view. COMPARISON: CT kidney stone [id number] 12/04/2022 12:45 PM FINDINGS: Bones/joints: Diffuse osseous demineralization severely limits evaluation. No displaced fracture. There is questionable cortical irregularity involving the left inferior pubic ramus. Soft tissues: Unremarkable. XR/XR pelvis 1-2V* [id number] IMPRESSION: Limited exam due to diffuse osseous demineralization. Questionable cortical irregularity involving the left inferior pubic ramus which could represent a nondisplaced fracture versus superimposed structures. No displaced fracture. CT or rapid protocol pelvis MRI may be useful in differentiating as clinically indicated.
--- NOTE | 2025-02-11 15:52 | XRR_ITS ---
PROCEDURE INFORMATION: Exam: XR Left Tibia and Fibula Exam date and time: 02/11/2025 4:14 PM Age: 74 years old Clinical indication: Pain; Lower leg; Left; Additional info: Fall TECHNIQUE: Imaging protocol: Radiologic exam of the left tibia and fibula. Views: 2 views. COMPARISON: CR XR knee LT 3V* [id number] 02/11/2025 4:14 PM FINDINGS: Bones/joints: No acute fracture. Diffuse osseous demineralization. Soft tissues: Normal. Vasculature: Extensive vascular calcifications. XR/XR tibia fibula LT 2V [id number] IMPRESSION: No acute osseous abnormality.
--- NOTE | 2025-02-11 15:52 | XRR_ITS ---
PROCEDURE INFORMATION: Exam: XR Left Knee Exam date and time: 02/11/2025 4:14 PM Age: 74 years old Clinical indication: Pain; Knee; Left; Additional info: Fall TECHNIQUE: Imaging protocol: Radiologic exam of the left knee. Views: 3 views. COMPARISON: CR XR tibia fibula LT 2V [id number] 02/11/2025 4:14 PM FINDINGS: Bones/joints: Diffuse osseous demineralization. No acute fracture. Tricompartmental osteoarthritis. Small knee effusion. Soft tissues: Normal. Vasculature: Extensive vascular calcifications. XR/XR knee LT 3V* [id number] IMPRESSION: No acute fracture.
--- NOTE | 2025-02-11 15:53 | W.ED.EXTPRO ---
HPI - Extremity Problem General: Chief complaint: Extremity Problem,Nontraumatic Stated complaint: BLE PAIN Time Seen by Provider: 02/11/25 15:50 Source: patient and EMS Mode of arrival: EMS Limitations: no limitations History of Present Illness: 74-year-old male he states that he fell 3 days ago at [facility]. He had landed on his left knee he has an abrasion to his left knee has been complaining of left knee pain along with some pelvic pain since the fall. States most pain is in his left knee rates it a 5 out of 10. He had recently had shoulder surgery denies hitting his head denies hitting his shoulder denies hitting his neck Associated symptoms: Deny chest pain, fever(s) or rash Related Data Previous Rx's ?Medication ?Instructions ?Recorded walker #1 ea 06/10/20 diazepam 5 mg tablet (Valium) 5 mg PO ONCE PRN anxiety 1 day #2 01/21/23 tabs Maldonado Balance Brace or Alternative #1 ea 09/22/23 ibuprofen 400 mg tablet 400 mg PO TID #90 tabs 11/03/23 polyethylene glycol 3350 17 17 g PO DAILY PRN constipation 12/30/23 gram/dose oral powder (Miralax) #510 grams glipizide 10 mg tablet 10 mg PO BID #180 tabs 02/02/24 pioglitazone 45 mg tablet See Rx Instructions .Route 02/02/24 .COMPLEX #90 tabs tamsulosin 0.4 mg capsule 0.4 mg PO DAILY #90 caps 02/02/24 trazodone 50 mg tablet 50 mg PO .COMPLEX #90 tabs 02/02/24 cholecalciferol (vitamin D3) 1,250 50,000 unit PO .weekly 8 weeks #8 02/29/24 mcg (50,000 unit) capsule caps levothyroxine 125 mcg tablet 125 mcg PO DAILY #90 tabs 04/20/24 MOBILITY SCOOTER 1 unit as directed DAILY DECREASED 08/11/24 MOBILITY, FALL RISK #1 unit naloxegol 25 mg tablet (Movantik) See Rx Instructions .Route 08/28/24 .COMPLEX #30 tabs tramadol 50 mg tablet 50 mg PO QID #120 tabs 09/20/24 onabotulinumtoxinA 100 unit 700 unit IM Q90D #6 ea 11/14/24 solution for injection (Botox) allopurinol 300 mg tablet See Rx Instructions .Route 01/15/25 .COMPLEX #90 tabs doxycycline hyclate 100 mg capsule 100 mg PO BID 10 days #20 caps 01/19/25 simvastatin 20 mg tablet See Rx Instructions .Route 01/26/25 .COMPLEX #90 tabs Allergies Allergy/AdvReac Type Severity Reaction Status Date / Time amoxicillin Allergy Unknown ALGY-Rash Verified 01/19/25 09:07 celecoxib (From Celebrex) Allergy Unknown unknown Verified 01/19/25 09:07 Penicillins Allergy Unknown unknown Verified 01/19/25 09:07 Review of Systems Const: Denies: fever(s), chills, body aches or change in appetite ENMT: Denies: throat pain or dental pain Card: Denies: chest pain Resp: Denies: dyspnea GI: Denies: abdominal pain, nausea, vomiting or diarrhea Musc: Reports: extremity pain; Denies: neck pain or back pain Skin/Breast: Denies: rash Neuro: Denies: headache(s) PFSH ED PFSH: Medical History Intervertebral disc disorders with radiculopathy, lumbar region BPH (benign prostatic hyperplasia) Gout Diabetes mellitus Hypothyroid Hypertension Surgical History H/O shoulder surgery H/O lumbar discectomy (~2017) S/P insertion of spinal cord stimulator (~08/26/17) Device removed either 2017 or 2018 Social History Smoking and tobacco/nicotine status: never used tobacco/nicotine Alcohol intake: never Substance/Drug Use: never Lives independently: Yes Household members: spouse Marital status: Current occupational status: employed Physical Exam Const: COMMON NORMALS: no acute distress, patient oriented x3 and healthy appearing HENMT: COMMON NORMALS: normocephalic and atraumatic HEAD & SCALP: normocephalic and atraumatic Neck/C-Spine: COMMON NORMALS: full ROM and supple Chest: COMMONS NORMALS: normal inspection of the chest Resp: COMMON NORMALS: normal respiratory effort, No retractions, No use of accessory muscles and clear to auscultation bilaterally AUSCULTATION: clear to auscultation bilaterally Cardio: COMMON NORMALS: regular rate, regular rhythm and No murmurs present (Cardio) RATE: regular rate RHYTHM: regular rhythm Extremity: COMMON NORMALS: full ROM NARRATIVE EXTREMITY EXAM: Abrasion noted to left knee some tenderness left knee Neuro: COMMON NORMALS: patient oriented x3, moves all extremities and no focal motor deficits Psych: COMMON NORMALS: mental status grossly normal, Normal thought process present and cooperative THOUGHT PROCESS: Normal thought process present Skin: COMMON NORMALS: no rashes or lesions noted and no wounds GENERAL SKIN EXAM: no rashes or lesions noted Course Vital Signs: Vital signs: Vital Signs Temperature 97.6 F 02/11/25 15:40 Pulse Rate 70 02/11/25 19:00 Respiratory Rate 16 02/11/25 19:00 Blood Pressure 157/82 02/11/25 19:00 Pulse Oximetry 95 02/11/25 19:00 Oxygen Delivery Me thod Room Air 02/11/25 18:51 MDM - Extremity (Nontraumatic) Medical Decision Making Patient presents here to leg pain and some slight left leg swelling he has no signs of DVT on ultrasound he does have bilateral pulses palpable imaging here shows no signs of fractures he stable for discharge at this time follow-up with his orthopedist next week as scheduled we will discharge him back to [facility] Medical Records I reviewed the patient's medical records. Lab Data Radiology Impressions Knee X-Ray 02/11/25 15:52 IMPRESSION: No acute fracture. Pelvis X-Ray 02/11/25 15:52 IMPRESSION: Limited exam due to diffuse osseous demineralization. Questionable cortical irregularity involving the left inferior pubic ramus which could represent a nondisplaced fracture versus superimposed structures. No displaced fracture. CT or rapid protocol pelvis MRI may be useful in differentiating as clinically indicated. Tibia/Fibula X-Ray 02/11/25 15:52 IMPRESSION: No acute osseous abnormality. Venous Duplex 02/11/25 16:40 IMPRESSION: No evidence of deep vein thrombosis in the left lower extremity. Hip CT 02/11/25 17:19 IMPRESSION: No acute fracture. Laboratory Results Urine Color Yellow (Yellow) 02/11/25 18:30 Urine Appearance Clear (CLEAR) 02/11/25 18:30 Urine pH 5.5 (5-7) 02/11/25 18:30 Ur Specific [place] 1.018 (1.005-1.030) 02/11/25 18:30 Urine Protein Trace (Negative) A 02/11/25 18:30 Urine Glucose (UA) Trace (Normal) H 02/11/25 18:30 Urine Ketones Negative (Negative) 02/11/25 18:30 Urine Blood Trace (Negative) A 02/11/25 18:30 Urine Nitrate Negative (Negative) 02/11/25 18:30 Urine Bilirubin Negative (Negative) 02/11/25 18:30 Urine Urobilinogen 1.0 mg/dL (Negative) 02/11/25 18:30 Ur Leukocyte Esterase 1+ (Negative) A 02/11/25 18:30 Urine RBC 6-10 /hpf (0-2) 02/11/25 18:30 Urine WBC 11-20 /hpf (0-5) H 02/11/25 18:30 Ur Squamous Epith Cells 6-10 /hpf (0-5) 02/11/25 18:30 Amorphous Sediment Not Reportable 02/11/25 18:30 Urine Bacteria Trace /hpf (NONE) 02/11/25 18:30 Hyaline Casts 6.61 /lpf 02/11/25 18:30 All radiology interpretation(s) finalized by discharge Discharge Plan Discharge Patient Disposition: Home Clinical Impression: Leg pain Condition: Stable Prescriptions: No Action diazepam [Valium] 5 mg tablet 5 mg PO ONCE PRN (Reason: anxiety) 1 Days Qty: 2 0RF doxycycline hyclate 100 mg capsule 100 mg PO BID 10 Days Qty: 20 0RF polyethylene glycol 3350 [Miralax] 17 gram/dose powder 17 g PO DAILY PRN (Reason: constipation) Qty: 510 3RF Rx Instructions: 17 grams now, if no bm repeat in am, then twice a day until bm. decrease to once a day until regular bms. (DME) Maldonado Balance Brace or Alternative See Rx Instructions .Route .MEDSUPPLY Qty: 1 0RF Rx Instructions: As directed by [employer] glipizide 10 mg tablet 10 mg PO BID Qty: 180 3RF pioglitazone 45 mg tablet See Rx Instructions .ROUTE .COMPLEX Qty: 90 3RF Dose Instruction: Take 1 tablet by mouth once daily Rx Instructions: Take 1 tablet by mouth once daily tamsulosin 0.4 mg capsule 0.4 mg PO DAILY Qty: 90 3RF trazodone 50 mg tablet 50 mg PO .COMPLEX Qty: 90 3RF Rx Instructions: 50 mg orally; 1-2 tablets at night MOBILITY SCOOTER 1 unit as directed DAILY Qty: 1 0RF Rx Instructions: multiple systems atrophy parkinson's type (DME) walker Misc See Rx Instructions .ROUTE .MEDSUPPLY Qty: 1 0RF Rx Instructions: please dispense one upright walker ibuprofen 400 mg tablet 400 mg PO TID Qty: 90 0RF cholecalciferol (vitamin D3) 1,250 mcg (50,000 unit) capsule 50,000 unit PO .weekly 56 Days Qty: 8 0RF levothyroxine 125 mcg tablet 125 mcg PO DAILY Qty: 90 3RF Movantik 25 mg tablet See Rx Instructions .ROUTE .COMPLEX Qty: 30 5RF Dose Instruction: TAKE 1 TABLET BY MOUTH IN THE MORNING FOR CONSTIPATION. MUST TAKE ON AN EMPTY STOMACH. NO FOOD FOR 1 HOUR AFTER OR 2-3 HOURS BEFORE DOSE Rx Instructions: TAKE 1 TABLET BY MOUTH IN THE MORNING FOR CONSTIPATION. MUST TAKE ON AN EMPTY STOMACH. NO FOOD FOR 1 HOUR AFTER OR 2-3 HOURS BEFORE DOSE tramadol 50 mg tablet 50 mg PO QID Qty: 120 3RF Botox 100 unit recon soln 700 unit IM Q90D Qty: 6 2RF Rx Instructions: Bilateral gastrocnemius 400 units total Bilateral soleus 300 units total allopurinol 300 mg tablet See Rx Instructions .ROUTE .COMPLEX Qty: 90 0RF Dose Instruction: Take 1 tablet by mouth once daily Rx Instructions: Take 1 tablet by mouth once daily simvastatin 20 mg tablet See Rx Instructions .ROUTE .COMPLEX Qty: 90 0RF Dose Instruction: Take 1 tablet by mouth once daily Rx Instructions: Take 1 tablet by mouth once daily Discharge Orders: Discharge ED (Routine); Ordered 02/11/25 Ordered By: Sandrine Jeffreson Referrals: Jing Livingston NP [Primary Care Provider, Family Practice] Discharge Diet: Advance as tolerated Discharge Activity: Resume usual activity Patient Instructions: Leg Pain (ED) Print Language: Yi Coding Level of Care Code ED Outpatient Clerk for Kulwinder Warren
--- NOTE | 2025-02-11 16:40 | USR_ITS ---
PROCEDURE INFORMATION: Exam: US Duplex Left Lower Extremity Veins, Limited Exam date and time: 02/11/2025 5:45 PM Age: 74 years old Clinical indication: Swelling (edema) of limb; Lower extremity, left; Additional info: Leg swelling TECHNIQUE: Imaging protocol: Real-time duplex ultrasound of the left extremity with 2-D kearney scale, color Doppler flow and spectral waveform analysis including responses to compression and other maneuvers (when performed) with image documentation. Limited exam focused on the left lower extremity veins. COMPARISON: CT hip LT wo con* [id number] 02/11/2025 5:26 PM FINDINGS: Left deep veins: Unremarkable. The common femoral, femoral, proximal profunda femoral and popliteal veins are patent without thrombus. Normal Doppler waveforms. Normal compressibility and/or augmentation response. Superficial veins: Greater saphenous vein at the saphenofemoral junction is patent without thrombus. Soft tissues: Subcutaneous edema. US/CV venous duplex [facility] [id number] IMPRESSION: No evidence of deep vein thrombosis in the left lower extremity.
[2025-02-11 16:47] VITALS: BP 142/86; PULSE 68; RESP 16; O2SAT 95
--- NOTE | 2025-02-11 17:19 | CTR_ITS ---
PROCEDURE INFORMATION: Exam: CT Left Lower Extremity Without Contrast, Hip Exam date and time: 02/11/2025 5:26 PM Age: 74 years old Clinical indication: Injury or trauma; Fall; Blunt trauma; Hip; Left TECHNIQUE: Imaging protocol: CT of the left lower extremity without contrast was performed. Exam focused on the hip. Radiation optimization: All CT scans at this facility use at least one of these dose optimization techniques: automated exposure control; mA and/or kV adjustment per patient size (includes targeted exams where dose is matched to clinical indication); or iterative reconstruction. COMPARISON: CT kidney stone [id number] 12/04/2022 12:45 PM RADIATION DOSE METRICS: Total DLP (mGy-cm): 566.67 FINDINGS: Bones/joints: Diffuse osseous demineralization. No acute fracture or dislocation. Left hip osteoarthritis. Soft tissues: Subcutaneous stranding overlying the left hip and proximal thigh Vasculature: Extensive vascular calcifications. CT/CT hip LT wo con* [id number] IMPRESSION: No acute fracture.
[2025-02-11 18:40] LABS: Glucose Urine UA Trace (Normal); Nitrate Urine Negative (Negative); Specific Gravity, Urine 1.018 (1.005-1.030)
[2025-02-11 18:45] LABS: Add Urine Microscopic? YES
[2025-02-11 18:51] VITALS: BP 155/80; PULSE 60; RESP 16; O2SAT 95
[2025-02-11 18:57] LABS: UA Slide Review UA Slide Review Perf
[2025-02-11 19:00] VITALS: BP 157/82; PULSE 70; RESP 16; O2SAT 95
== END 2025-02-11 19:44 | disposition home or self-care (01) ==
PROVIDERS: Emergency Provider Emergency Medicine; PCP Nurse Practitioner Family
DX: M79.605 Pain in left leg (principal); E11.9 Type 2 diabetes mellitus without complications; I10 Essential (primary) hypertension
CPT/HCPCS: 72170; 73562; 73590; 73700; 81001; 87086; 93971; 99284

== ENCOUNTER → 2025-06-20 09:15 | Outpatient (BNVA) | payer MEDICARE, SELFPAY | PROVIDERS: PCP Nurse Practitioner Family; Visit Provider Nurse Practitioner Family | DX: I10 Essential (primary) hypertension (principal); E11.9 Type 2 diabetes mellitus without complications; E55.9 Vitamin D deficiency, unspecified | CPT/HCPCS: 80053; 80061; 82306; 83036 ==